=== PATIENT | female | born 1950 | race Caucasian/White ===

== ENCOUNTER 2017-10-19 01:55 | Outpatient (RCR) | payer MEDICARE, OTHER, SELFPAY ==
[2017-10-19] MEDS: diphenhydrAMINE 25 MG CAP PO (10:52)
[2017-10-19] MEDS: Acetaminophen 325 MG TAB 650 MG PO (11:03)
[2017-10-19 11:24] VITALS: BP 108/63; PULSE 71; TEMP 36.5
[2017-10-19 11:55] VITALS: BP 112/63; PULSE 67; RESP 18; TEMP 36
[2017-10-19 12:10] VITALS: BP 110/65; PULSE 65; RESP 18; TEMP 36
== END 2017-11-11 ==
LOC: INF 01:55
PROVIDERS: PCP Family Medicine; Visit Provider Family Medicine
DX: L40.50 Arthropathic psoriasis, unspecified (principal)
CPT/HCPCS: 96365; 96366; J1745

== ENCOUNTER 2017-11-23 09:32 | Outpatient (CLI) | payer MEDICARE, OTHER, SELFPAY ==
[2017-11-23 10:15] LABS: Abs Immature Grans 0.01 k/cumm (0.0-0.09); Absolute Basophil Count 0.02 k/cumm (0.0-0.2); Absolute Eosinophil Count 0.06 k/cumm (0.0-0.7); Absolute Lymphocyte Count 1.75 k/cumm (1.2-3.4); Absolute Monocyte Count 0.39 k/cumm (0.11-0.7); Absolute Neutrophil Count 1.98 k/cumm (1.2-6.7); Basophils % 0.5; Eosinophils % 1.4; HCT 39.6 % (36.0-46.0); HGB 12.9 g/dL (12.0-15.5); Immature Grans % 0.2; Lymphocytes % 41.6; Mean Corp. HGB Concentration 32.6 g/dL (32.0-36.0); Mean Corpuscular Hemoglobin 32.9 pg (27.0-33.0); Monocytes % 9.3; Platelet Count 238 x1000/uL (130-400); RBC 3.92 m/cumm (4.00-5.20); RBC Distribution Width 13.9 % (11.7-14.6); White Blood Cell Count 4.21 k/cumm (4.4-10.8)
[2017-11-23 10:48] LABS: ALT 40 U/L (12-78); AST 31 U/L (15-37); Albumin 3.5 g/dL (3.4-5.0); Alkaline Phosphatase 103 U/L (46-116); BUN 24 mg/dL (7-18); Bilirubin, Total 0.4 mg/dL (0.2-1.0); CREATININE 0.88 mg/dL (0.55-1.02)
[2017-11-23 11:00] LABS: Bilirubin, Direct 0.13 mg/dL (0.00-0.20)
== END 2017-11-23 09:52 ==
PROVIDERS: PCP Family Medicine; Visit Provider Nurse Practitioner Family
DX: L40.54 Psoriatic juvenile arthropathy (principal); Z79.899 Other long term (current) drug therapy
CPT/HCPCS: 36415; 80076; 84520; 82565; 85025

== ENCOUNTER 2017-12-14 01:34 | Outpatient (RCR) | payer MEDICARE, OTHER, SELFPAY ==
[2017-12-14] MEDS: Normal Saline Flush 10 ML SYR IVP (10:58)
[2017-12-14] MEDS: diphenhydrAMINE 25 MG CAP PO (11:05)
[2017-12-14] MEDS: Acetaminophen 325 MG TAB 650 MG PO (11:06)
[2017-12-14 11:30] VITALS: BP 117/66; PULSE 61; RESP 18; TEMP 36.3; O2SAT 98
[2017-12-14 11:34] VITALS: BP 123/67; PULSE 61; RESP 18; TEMP 37; O2SAT 97
[2017-12-14 11:47] VITALS: BP 119/74; PULSE 61; RESP 18; TEMP 37.1; O2SAT 96
[2017-12-14 12:00] VITALS: BP 117/58; PULSE 67; RESP 18; TEMP 37.2; O2SAT 99
[2017-12-14 12:30] VITALS: BP 123/56; PULSE 65; RESP 18; TEMP 36.2; O2SAT 99
[2017-12-14 13:04] VITALS: BP 113/51; PULSE 67; RESP 18; TEMP 36.8; O2SAT 99
== END 2018-01-11 23:59 | disposition home or self-care (01) ==
LOC: INF 01:34
PROVIDERS: PCP Family Medicine; Visit Provider Family Medicine
DX: L40.50 Arthropathic psoriasis, unspecified (principal)
CPT/HCPCS: 96365; 96366; J1745

== ENCOUNTER 2017-12-29 01:27 | Outpatient (CLI) | payer MEDICARE, OTHER, SELFPAY ==
--- NOTE | 2017-12-29 11:50 | DI.MAMMO_ITS ---
SYMPTOM/DIAGNOSIS: SCREENING, Z12.31 MAMMOGRAMS: Mammograms were interpreted according to the usual protocol including computer analysis with CAD system, tomosynthesis and C view imaging. The breast tissue is heterogeneously radiodense which lowers the sensitivity of the study. There is no dominant mass. There are no suspicious calcifications and there has been no significant interval change when compared with prior images. SUMMARY: No evidence of malignancy. Category 1. Yearly screening mammography is recommended. Breast density, category C. SA ASSESSMENT OF FINDINGS: Negative. Category 1. Patient will receive a letter notifying them of these results. Bi-RADS category C. The breasts are heterogeneously dense, which may obscure small masses.
== END 2017-12-29 01:47 ==
PROVIDERS: PCP Family Medicine; Visit Provider Nurse Practitioner Family
DX: Z12.31 Encounter for screening mammogram for malignant neoplasm of breast (principal)
CPT/HCPCS: 77063; 77067

== ENCOUNTER 2018-02-08 01:13 | Outpatient (RCR) | payer MEDICARE, OTHER, SELFPAY ==
[2018-02-08 11:17] VITALS: BP 106/60; PULSE 76; RESP 18; TEMP 36.7; O2SAT 94
[2018-02-08] MEDS: diphenhydrAMINE 25 MG CAP PO (11:20)
[2018-02-08] MEDS: Acetaminophen 325 MG TAB 650 MG PO (11:20)
[2018-02-08] MEDS: Normal Saline Flush 10 ML SYR IVP (11:27)
[2018-02-08 11:55] VITALS: BP 116/54; PULSE 63; RESP 18; TEMP 36.6; O2SAT 96
[2018-02-08 12:09] VITALS: BP 115/56; PULSE 64; RESP 18; TEMP 36.7; O2SAT 96
[2018-02-08 12:25] VITALS: BP 123/51; PULSE 66; RESP 18; TEMP 36.8; O2SAT 97
[2018-02-08 12:56] VITALS: BP 106/50; PULSE 65; RESP 18; TEMP 36.7; O2SAT 95
[2018-02-08 13:26] VITALS: BP 114/57; PULSE 68; RESP 18; TEMP 36.5; O2SAT 96
== END 2018-02-10 23:59 | disposition home or self-care (01) ==
LOC: INF 01:13
PROVIDERS: PCP Family Medicine; Visit Provider Family Medicine
DX: L40.50 Arthropathic psoriasis, unspecified (principal)
CPT/HCPCS: 96365; 96366; J1745

== ENCOUNTER 2018-02-16 08:41 | Outpatient (CLI) | payer MEDICARE, OTHER, SELFPAY ==
[2018-02-16 09:11] LABS: HCT 39.2 % (36.0-46.0); HGB 13.1 g/dL (12.0-15.5); Mean Corp. HGB Concentration 33.4 g/dL (32.0-36.0); Mean Corpuscular Hemoglobin 33.3 pg (27.0-33.0); Mean Corpuscular Volume 99.7 fL (80-95); Mean Platelet Volume 9.5 fL (8.0-11.0); Platelet Count 194 x1000/uL (130-400); RBC 3.93 m/cumm (4.00-5.20); RBC Distribution Width 13.7 % (11.7-14.6); White Blood Cell Count 3.42 k/cumm (4.4-10.8)
[2018-02-16 09:51] LABS: ALT 38 U/L (12-78); AST 30 U/L (15-37); Albumin 3.4 g/dL (3.4-5.0); Alkaline Phosphatase 93 U/L (46-116); BUN 27 mg/dL (7-18); Bilirubin, Direct 0.14 mg/dL (0.00-0.20); Bilirubin, Total 0.4 mg/dL (0.2-1.0); CREATININE 0.81 mg/dL (0.55-1.02); Total Protein 6.8 g/dL (6.4-8.2)
== END 2018-02-16 09:01 ==
PROVIDERS: PCP Family Medicine; Visit Provider Nurse Practitioner Family
DX: L40.54 Psoriatic juvenile arthropathy (principal); Z79.899 Other long term (current) drug therapy
CPT/HCPCS: 36415; 80076; 84520; 85027; 82565

== ENCOUNTER 2018-04-05 02:01 | Outpatient (RCR) | payer MEDICARE, OTHER, SELFPAY ==
[2018-04-05] MEDS: Acetaminophen 325 MG TAB 650 MG PO (10:59)
[2018-04-05] MEDS: Normal Saline Flush 10 ML SYR IVP (10:59)
[2018-04-05] MEDS: diphenhydrAMINE 25 MG CAP PO (10:59)
[2018-04-05 11:05] VITALS: BP 113/54; PULSE 70; RESP 18; TEMP 36; O2SAT 96
[2018-04-05 11:38] VITALS: BP 104/49; PULSE 69; RESP 18; TEMP 36; O2SAT 98
[2018-04-05 11:54] VITALS: BP 115/57; PULSE 67; RESP 18; TEMP 36; O2SAT 98
[2018-04-05 12:15] VITALS: BP 110/60; PULSE 65; RESP 18; TEMP 36; O2SAT 98
[2018-04-05 12:40] VITALS: BP 115/65; PULSE 64; RESP 18; TEMP 36; O2SAT 98
== END 2018-04-13 23:59 | disposition home or self-care (01) ==
LOC: INF 02:01
PROVIDERS: PCP Family Medicine; Visit Provider Internal Medicine
DX: L40.50 Arthropathic psoriasis, unspecified (principal)
CPT/HCPCS: 96365; 96366; J1745

== ENCOUNTER 2018-05-31 01:42 | Outpatient (RCR) | payer MEDICARE, OTHER, SELFPAY ==
[2018-05-31 10:55] VITALS: BP 136/69; PULSE 63; RESP 18; TEMP 36.5; O2SAT 100
[2018-05-31] MEDS: diphenhydrAMINE 25 MG CAP PO (10:57)
[2018-05-31] MEDS: Acetaminophen 325 MG TAB 650 MG PO (10:57)
[2018-05-31] MEDS: Normal Saline Flush 10 ML SYR IVP (10:57)
[2018-05-31 11:46] VITALS: BP 132/70; PULSE 61; RESP 18; TEMP 36.3; O2SAT 98
[2018-05-31 12:00] VITALS: BP 115/64; PULSE 66; RESP 18; TEMP 36.4; O2SAT 98
[2018-05-31 12:15] VITALS: BP 116/65; PULSE 65; RESP 18; TEMP 36.3; O2SAT 98
== END 2018-06-11 23:59 | disposition home or self-care (01) ==
LOC: INF 01:42
PROVIDERS: PCP Family Medicine; Visit Provider Internal Medicine
DX: L40.50 Arthropathic psoriasis, unspecified (principal)
CPT/HCPCS: 96365; 96366; J1745

== ENCOUNTER 2018-07-26 01:39 | Outpatient (RCR) | payer MEDICARE, OTHER, SELFPAY ==
[2018-07-26 10:57] VITALS: BP 103/68; PULSE 77; RESP 18; TEMP 36; O2SAT 100
[2018-07-26] MEDS: Acetaminophen 325 MG TAB 650 MG PO (10:58)
[2018-07-26] MEDS: diphenhydrAMINE 25 MG CAP PO (10:59)
[2018-07-26] MEDS: Normal Saline Flush 10 ML SYR IVP (11:00)
[2018-07-26 11:44] VITALS: BP 106/70; PULSE 62; RESP 18; TEMP 36.8; O2SAT 97
[2018-07-26 12:07] VITALS: BP 114/74; PULSE 64; RESP 18; TEMP 36.3; O2SAT 98
[2018-07-26 12:36] VITALS: BP 117/74; PULSE 69; RESP 18; TEMP 36.1; O2SAT 99
== END 2018-08-11 23:59 | disposition home or self-care (01) ==
LOC: INF 01:39
PROVIDERS: PCP Family Medicine; Visit Provider Internal Medicine
DX: L40.50 Arthropathic psoriasis, unspecified (principal)
CPT/HCPCS: 96365; 96366; J1745

== ENCOUNTER 2018-08-04 09:30 | Outpatient (CLI) | payer MEDICARE, OTHER, SELFPAY ==
[2018-08-04 09:53] LABS: HCT 38.9 % (36.0-46.0); HGB 12.9 g/dL (12.0-15.5); Mean Corp. HGB Concentration 33.2 g/dL (32.0-36.0); Mean Corpuscular Hemoglobin 33.5 pg (27.0-33.0); Mean Platelet Volume 9.6 fL (8.0-11.0); Platelet Count 188 x1000/uL (130-400); RBC 3.85 m/cumm (4.00-5.20); White Blood Cell Count 5.12 k/cumm (4.4-10.8)
[2018-08-04 11:30] LABS: ALT 32 U/L (12-78); AST 26 U/L (15-37); Albumin 3.4 g/dL (3.4-5.0); Alkaline Phosphatase 103 U/L (46-116); BUN 29 mg/dL (7-18); Bilirubin, Direct 0.12 mg/dL (0.00-0.20); Bilirubin, Total 0.3 mg/dL (0.2-1.0); CREATININE 0.85 mg/dL (0.55-1.02); Total Protein 6.8 g/dL (6.4-8.2)
== END 2018-08-04 09:50 ==
PROVIDERS: PCP Family Medicine; Visit Provider Nurse Practitioner Family
DX: L40.54 Psoriatic juvenile arthropathy (principal); Z79.899 Other long term (current) drug therapy
CPT/HCPCS: 36415; 80076; 84520; 85027; 82565

== ENCOUNTER 2018-09-22 04:08 | Outpatient (RCR) | payer MEDICARE, OTHER, SELFPAY ==
[2018-09-22 10:57] VITALS: BP 112/70; PULSE 64; RESP 18; TEMP 36.7; O2SAT 98
[2018-09-22] MEDS: Acetaminophen 325 MG TAB 650 MG PO (11:16)
[2018-09-22] MEDS: diphenhydrAMINE 25 MG CAP PO (11:16)
[2018-09-22] MEDS: Normal Saline Flush 10 ML SYR IVP (11:17)
[2018-09-22 11:48] VITALS: BP 107/66; PULSE 64; RESP 18; TEMP 36.7; O2SAT 98
[2018-09-22 12:04] VITALS: BP 114/71; PULSE 68; RESP 18; TEMP 36.4; O2SAT 98
[2018-09-22 12:30] VITALS: BP 97/57; PULSE 68; RESP 18; TEMP 36.4; O2SAT 98
[2018-09-22 12:51] VITALS: BP 100/56; PULSE 65; RESP 18; TEMP 36.4; O2SAT 99
[2018-09-22 13:16] VITALS: BP 99/61; PULSE 68; RESP 18; TEMP 36.6; O2SAT 98
== END 2018-10-11 23:59 | disposition home or self-care (01) ==
LOC: INF 04:08
PROVIDERS: PCP Family Medicine; Visit Provider Internal Medicine
DX: L40.50 Arthropathic psoriasis, unspecified (principal)
CPT/HCPCS: 96365; 96366; J1745

== ENCOUNTER 2018-10-27 02:06 | Outpatient (CLI) | payer MEDICARE, OTHER, SELFPAY ==
[2018-10-27 10:32] LABS: HGB 13.2 g/dL (12.0-15.5); Mean Corp. HGB Concentration 32.2 g/dL (32.0-36.0); Mean Corpuscular Volume 99.5 fL (80-95); Mean Platelet Volume 9.9 fL (8.0-11.0); Platelet Count 236 x1000/uL (130-400); RBC 4.12 m/cumm (4.00-5.20); RBC Distribution Width 13.2 % (11.7-14.6); White Blood Cell Count 5.54 k/cumm (4.4-10.8)
[2018-10-27 11:16] LABS: ALT 29 U/L (12-78); AST 24 U/L (15-37); Albumin 3.5 g/dL (3.4-5.0); Alkaline Phosphatase 107 U/L (46-116); BUN 30 mg/dL (7-18); Bilirubin, Direct 0.12 mg/dL (0.00-0.20); Bilirubin, Total 0.4 mg/dL (0.2-1.0); CREATININE 0.72 mg/dL (0.55-1.02); Total Protein 7.1 g/dL (6.4-8.2)
== END 2018-10-27 02:26 ==
PROVIDERS: Nurse Practitioner Family; PCP Family Medicine; Visit Provider Internal Medicine Rheumatology
DX: L40.54 Psoriatic juvenile arthropathy (principal); Z79.899 Other long term (current) drug therapy
CPT/HCPCS: 36415; 80076; 84520; 85027; 82565

== ENCOUNTER 2018-11-15 01:08 | Outpatient (RCR) | payer MEDICARE, OTHER, SELFPAY ==
[2018-11-15] MEDS: Acetaminophen 325 MG TAB 650 MG PO (11:04)
[2018-11-15] MEDS: diphenhydrAMINE 25 MG CAP PO (11:05)
[2018-11-15 11:09] VITALS: BP 115/76; PULSE 71; RESP 18; TEMP 36.6; O2SAT 99
[2018-11-15] MEDS: Normal Saline Flush 10 ML SYR IVP (12:00)
[2018-11-15 12:11] VITALS: BP 110/71; PULSE 64; RESP 18; TEMP 36.4; O2SAT 98
[2018-11-15 12:28] VITALS: BP 114/70; PULSE 67; RESP 18; TEMP 36.5; O2SAT 100
[2018-11-15 13:00] VITALS: BP 115/72; PULSE 65; RESP 18; TEMP 36.5; O2SAT 98
[2018-11-15 14:18] VITALS: BP 110/66; PULSE 70; RESP 18; TEMP 36.5; O2SAT 99
== END 2018-12-11 23:59 | disposition home or self-care (01) ==
LOC: INF 01:08
PROVIDERS: PCP Family Medicine; Visit Provider Internal Medicine
DX: L40.50 Arthropathic psoriasis, unspecified (principal)
CPT/HCPCS: 96365; 96366; J1745

== ENCOUNTER 2019-01-29 01:54 | Outpatient (RCR) | payer MEDICARE, OTHER, SELFPAY ==
[2019-01-29] VITALS (7 sets, daily range): BP systolic 103–117; BP diastolic 62–75; PULSE 59–68; RESP 17–19; TEMP 36.9–37.1; O2SAT 96–98
[2019-01-29] MEDS: Normal Saline Flush 10 ML SYR IVP (11:29)
== END 2019-02-10 23:59 | disposition home or self-care (01) ==
LOC: INF 01:54
PROVIDERS: PCP Family Medicine; Visit Provider Internal Medicine
DX: L40.50 Arthropathic psoriasis, unspecified (principal)
CPT/HCPCS: 96365; 96366; J1745

== ENCOUNTER 2019-02-02 09:35 | Outpatient (CLI) | payer MEDICARE, OTHER, SELFPAY ==
[2019-02-02 10:44] LABS: HCT 39.7 % (36.0-46.0); Mean Corp. HGB Concentration 32.7 g/dL (32.0-36.0); Mean Corpuscular Hemoglobin 32.3 pg (27.0-33.0); Mean Corpuscular Volume 98.5 fL (80-95); Mean Platelet Volume 9.2 fL (8.0-11.0); Platelet Count 251 x1000/uL (130-400); RBC 4.03 m/cumm (4.00-5.20); RBC Distribution Width 13.1 % (11.7-14.6); White Blood Cell Count 7.28 k/cumm (4.4-10.8)
[2019-02-02 11:14] LABS: ALT 30 U/L (14-59); AST 27 U/L (15-37); Albumin 3.4 g/dL (3.4-5.0); Alkaline Phosphatase 105 U/L (46-116); BUN 18 mg/dL (7-18); Bilirubin, Direct 0.09 mg/dL (0.00-0.20); Bilirubin, Total 0.4 mg/dL (0.2-1.0); CREATININE 0.78 mg/dL (0.55-1.02); Total Protein 6.9 g/dL (6.4-8.2)
== END 2019-02-02 09:55 ==
PROVIDERS: PCP Family Medicine; Visit Provider Nurse Practitioner Family
DX: L40.54 Psoriatic juvenile arthropathy (principal); Z79.899 Other long term (current) drug therapy
CPT/HCPCS: 36415; 80076; 84520; 85027; 82565

== ENCOUNTER 2019-04-11 02:18 | Outpatient (RCR) | payer MEDICARE, OTHER, SELFPAY ==
[2019-04-11 10:56] VITALS: BP 118/75; PULSE 76; RESP 18; TEMP 36.7; O2SAT 97
[2019-04-11] MEDS: Normal Saline Flush 10 ML SYR IVP (11:26)
[2019-04-11 11:30] VITALS: BP 121/67; PULSE 77; RESP 19; TEMP 36.8; O2SAT 95
[2019-04-11 11:45] VITALS: BP 119/73; PULSE 80; RESP 18; TEMP 36.8; O2SAT 96
[2019-04-11 12:00] VITALS: BP 122/76; PULSE 82; RESP 19; TEMP 36.6; O2SAT 97
[2019-04-11 12:15] VITALS: BP 111/71; PULSE 78; RESP 18; TEMP 36.6; O2SAT 96
[2019-04-11 12:53] VITALS: BP 101/59; PULSE 81; RESP 18; TEMP 36.8
== END 2019-04-13 23:59 | disposition home or self-care (01) ==
LOC: INF 02:18
PROVIDERS: PCP Family Medicine; Visit Provider Internal Medicine
DX: L40.50 Arthropathic psoriasis, unspecified (principal)
CPT/HCPCS: 96365; 96366; 96413; 96415; J1745

== ENCOUNTER 2019-04-27 01:10 | Outpatient (CLI) | payer MEDICARE, OTHER, SELFPAY ==
[2019-04-27 10:42] LABS: HCT 40.9 % (36.0-46.0); HGB 13.3 g/dL (12.0-15.5); Mean Corp. HGB Concentration 32.5 g/dL (32.0-36.0); Mean Corpuscular Hemoglobin 32.2 pg (27.0-33.0); Mean Platelet Volume 9.7 fL (8.0-11.0); Platelet Count 230 x1000/uL (130-400); RBC 4.13 m/cumm (4.00-5.20); RBC Distribution Width 12.9 % (11.7-14.6); White Blood Cell Count 5.08 k/cumm (4.4-10.8)
[2019-04-27 11:05] LABS: ALT 26 U/L (14-59); AST 25 U/L (15-37); Albumin 3.4 g/dL (3.4-5.0); Alkaline Phosphatase 99 U/L (46-116); BUN 25 mg/dL (7-18); Bilirubin, Direct 0.11 mg/dL (0.00-0.20); Bilirubin, Total 0.4 mg/dL (0.2-1.0); CREATININE 0.88 mg/dL (0.55-1.02); Total Protein 6.7 g/dL (6.4-8.2)
== END 2019-04-27 01:30 ==
PROVIDERS: PCP Family Medicine; Visit Provider Nurse Practitioner Family
DX: L40.50 Arthropathic psoriasis, unspecified (principal); Z79.899 Other long term (current) drug therapy
CPT/HCPCS: 36415; 80076; 84520; 85027; 82565

== ENCOUNTER 2019-06-06 01:52 | Outpatient (RCR) | payer MEDICARE, OTHER, SELFPAY ==
[2019-06-06] MEDS: diphenhydrAMINE 25 MG CAP PO (10:46)
[2019-06-06] MEDS: Acetaminophen 325 MG TAB 650 MG PO (10:46)
[2019-06-06] MEDS: Normal Saline Flush 10 ML SYR IVP (10:47)
[2019-06-06 11:06] VITALS: BP 114/73; PULSE 65; RESP 18; TEMP 36.8; O2SAT 97
[2019-06-06 11:35] VITALS: BP 114/73; PULSE 63; RESP 18; TEMP 36.7; O2SAT 97
[2019-06-06 11:50] VITALS: BP 111/65; PULSE 62; RESP 18; TEMP 36.5; O2SAT 97
[2019-06-06 12:05] VITALS: BP 116/61; PULSE 60; RESP 18; TEMP 36.7; O2SAT 97
[2019-06-06 12:20] VITALS: BP 106/65; PULSE 65; RESP 19; TEMP 36.4; O2SAT 97
[2019-06-06 13:00] VITALS: BP 104/59; PULSE 69; RESP 19; TEMP 36.5; O2SAT 98
== END 2019-06-12 23:59 | disposition home or self-care (01) ==
LOC: INF 01:52
PROVIDERS: PCP Family Medicine; Visit Provider Internal Medicine
DX: L40.50 Arthropathic psoriasis, unspecified (principal)
CPT/HCPCS: 96365; 96366; 96413; 96415; J1745

== ENCOUNTER 2019-07-25 02:25 | Outpatient (CLI) | payer MEDICARE, OTHER, SELFPAY ==
[2019-07-25 10:10] LABS: HGB 13.6 g/dL (12.0-15.5); Mean Corp. HGB Concentration 33.2 g/dL (32.0-36.0); Mean Corpuscular Hemoglobin 32.7 pg (27.0-33.0); Mean Corpuscular Volume 98.6 fL (80-95); Platelet Count 231 x1000/uL (130-400); RBC 4.16 m/cumm (4.00-5.20); RBC Distribution Width 13.1 % (11.7-14.6); White Blood Cell Count 5.53 k/cumm (4.4-10.8)
[2019-07-25 10:44] LABS: ALT 31 U/L (14-59); AST 26 U/L (15-37); Albumin 3.7 g/dL (3.4-5.0); Alkaline Phosphatase 108 U/L (46-116); BUN 25 mg/dL (7-18); Bilirubin, Direct 0.13 mg/dL (0.00-0.20); Bilirubin, Total 0.4 mg/dL (0.2-1.0); CREATININE 0.91 mg/dL (0.55-1.02); Total Protein 7.3 g/dL (6.4-8.2)
== END 2019-07-25 02:45 ==
PROVIDERS: PCP Family Medicine; Visit Provider Nurse Practitioner Family
DX: L40.50 Arthropathic psoriasis, unspecified (principal); Z79.899 Other long term (current) drug therapy
CPT/HCPCS: 36415; 80076; 84520; 85027; 82565

== ENCOUNTER 2019-08-01 00:50 | Outpatient (RCR) | payer MEDICARE, OTHER, SELFPAY ==
[2019-08-01] VITALS (8 sets, daily range): BP systolic 100–124; BP diastolic 62–76; PULSE 60–79; RESP 18–19; TEMP 36.3–36.4; O2SAT 97–99
[2019-08-01] MEDS: Normal Saline Flush 10 ML SYR IVP (11:24)
== END 2019-08-12 23:59 | disposition home or self-care (01) ==
LOC: INF 00:50
PROVIDERS: PCP Family Medicine; Visit Provider Internal Medicine
DX: L40.50 Arthropathic psoriasis, unspecified (principal)
CPT/HCPCS: 96365; 96366; 96413; 96415; J1745

== ENCOUNTER 2019-09-27 01:44 | Outpatient (RCR) | payer MEDICARE, OTHER, SELFPAY ==
[2019-09-27] VITALS (7 sets, daily range): BP systolic 103–113; BP diastolic 52–68; PULSE 64–68; RESP 18; TEMP 36.2–36.8; O2SAT 95–96
[2019-09-27] MEDS: Normal Saline Flush 10 ML SYR IVP (11:44)
== END 2019-10-12 23:59 | disposition home or self-care (01) ==
LOC: INF 01:44
PROVIDERS: PCP Family Medicine; Visit Provider Internal Medicine
DX: L40.59 Other psoriatic arthropathy (principal)
CPT/HCPCS: 96365; 96366; 96413; 96415; J1745

== ENCOUNTER 2019-10-31 03:01 | Outpatient (CLI) | payer MEDICARE, OTHER, SELFPAY ==
[2019-10-31 09:30] LABS: HCT 38.8 % (36.0-46.0); HGB 12.8 g/dL (11.2-15.7); MCH 32.2 pg (27.0-33.0); MCV 97.7 fL (80-95); MPV 9.6 fL (8.0-11.0); Platelet Count 210 10^3/uL (130-400); RBC 3.97 10^6/uL (3.93-5.22); RDW 12.7 % (11.7-14.6); RDW-SD 45.7 fL; WBC 6.16 10^3/uL (4.4-10.8)
[2019-10-31 10:34] LABS: ALT 27 U/L (14-59); AST 25 U/L (15-37); Albumin 3.3 g/dL (3.4-5.0); Alkaline Phosphatase 97 U/L (46-116); BUN 26 mg/dL (7-18); Bilirubin, Direct 0.09 mg/dL (0.00-0.20); Bilirubin, Total 0.3 mg/dL (0.2-1.0); CREATININE 0.79 mg/dL (0.55-1.02); Total Protein 6.8 g/dL (6.4-8.2)
== END 2019-10-31 03:21 ==
PROVIDERS: PCP Family Medicine; Visit Provider Nurse Practitioner Family
DX: L40.50 Arthropathic psoriasis, unspecified (principal); Z79.899 Other long term (current) drug therapy
CPT/HCPCS: 36415; 80076; 84520; 85027; 82565

== ENCOUNTER 2019-11-22 02:47 | Outpatient (RCR) | payer MEDICARE, OTHER, SELFPAY ==
[2019-11-22] VITALS (7 sets, daily range): BP systolic 99–142; BP diastolic 59–82; PULSE 68–73; RESP 18–19; TEMP 36.6–36.8; O2SAT 97
[2019-11-22] MEDS: diphenhydrAMINE 25 MG CAP PO (11:44)
[2019-11-22] MEDS: Acetaminophen 325 MG TAB 650 MG PO (11:44)
[2019-11-22] MEDS: Normal Saline Flush 10 ML SYR IVP (11:45)
== END 2019-12-12 23:59 | disposition home or self-care (01) ==
LOC: INF 02:47
PROVIDERS: PCP Family Medicine; Visit Provider Internal Medicine
DX: L40.59 Other psoriatic arthropathy (principal)
CPT/HCPCS: 96365; 96366; 96413; 96415; J1745

== ENCOUNTER 2020-02-01 03:05 | Outpatient (CLI) | payer MEDICARE, OTHER, SELFPAY ==
[2020-02-04 22:44] LABS: Patient Race White; SARS-CoV-2 RNA Undetected (Undetected); SARS-CoV-2 Specimen Source Nasal
== END 2020-02-01 03:25 ==
PROVIDERS: PCP Family Medicine; Visit Provider Family Medicine
DX: Z11.59 Encounter for screening for other viral diseases (principal)
CPT/HCPCS: U0003

== ENCOUNTER 2020-02-13 11:00 | Outpatient (RCR) | payer MEDICARE, OTHER, SELFPAY ==
[2020-02-13] VITALS (7 sets, daily range): BP systolic 109–132; BP diastolic 64–78; PULSE 65–83; RESP 16–18; TEMP 36.9–37; O2SAT 97–99
[2020-02-13] MEDS: Normal Saline Flush 10 ML SYR IVP (11:15)
[2020-02-13 11:25] LABS: HCT 40.6 % (36.0-46.0); HGB 13.4 g/dL (11.2-15.7); MCH 32.1 pg (27.0-33.0); MCV 97.4 fL (80-95); MPV 9.6 fL (8.0-11.0); Platelet Count 248 10^3/uL (130-400); RBC 4.17 10^6/uL (3.93-5.22); RDW 12.4 % (11.7-14.6); RDW-SD 44.7 fL; WBC 6.54 10^3/uL (4.4-10.8)
[2020-02-13 11:38] LABS: ALT 21 U/L (14-59); AST 22 U/L (15-37); Albumin 3.5 g/dL (3.4-5.0); Alkaline Phosphatase 102 U/L (46-116); Anion Gap 7.6 mmol/L (3-11); BUN 31 mg/dL (7-18); Bilirubin, Total 0.4 mg/dL (0.2-1.0); CO2 26.4 mmol/L (21.0-32.0); CREATININE 0.92 mg/dL (0.55-1.02); Calcium 8.7 mg/dL (8.5-10.1); Chloride 106 mmol/L (98-107); Glucose 72 mg/dL (74-106); Potassium 4.3 mmol/L (3.5-5.1); Sodium 140 mmol/L (136-145); Total Protein 7.7 g/dL (6.4-8.2)
== END 2020-03-13 23:59 | disposition home or self-care (01) ==
LOC: INF 11:00
PROVIDERS: Nurse Practitioner Family; PCP Family Medicine; Visit Provider Internal Medicine
DX: L40.50 Arthropathic psoriasis, unspecified (principal); Z79.899 Other long term (current) drug therapy
CPT/HCPCS: 36415; 80053; 85027; 96365; 96366; 96413; 96415; J1745

== ENCOUNTER 2020-04-23 02:39 | Outpatient (RCR) | payer MEDICARE, OTHER, SELFPAY ==
[2020-03-14 00:11] VITALS: BP 109/64; PULSE 77; RESP 16; TEMP 36.9
[2020-04-23] VITALS (7 sets, daily range): BP systolic 97–121; BP diastolic 59–71; PULSE 65–75; RESP 18–19; TEMP 37–37.6; O2SAT 95–97
[2020-04-23] MEDS: Normal Saline Flush 10 ML SYR IVP (11:05)
== END 2020-05-11 23:59 | disposition home or self-care (01) ==
LOC: INF 02:39
PROVIDERS: PCP Family Medicine; Visit Provider Internal Medicine
DX: L40.50 Arthropathic psoriasis, unspecified (principal); Z79.899 Other long term (current) drug therapy
CPT/HCPCS: 96365; 96366; 96413; 96415; J1745

== ENCOUNTER 2020-05-14 04:25 | Outpatient (CLI) | payer MEDICARE, OTHER, SELFPAY ==
[2020-05-14 13:13] LABS: HCT 41.9 % (36.0-46.0); HGB 13.7 g/dL (11.2-15.7); MCHC 32.7 % (32.0-36.0); MCV 97.9 fL (80-95); MPV 9.8 fL (8.0-11.0); Platelet Count 228 10^3/uL (130-400); RBC 4.28 10^6/uL (3.93-5.22); RDW 12.4 % (11.7-14.6); RDW-SD 44.3 fL; WBC 6.28 10^3/uL (4.4-10.8)
[2020-05-14 13:56] LABS: ALT 39 U/L (14-59); AST 31 U/L (15-37); Albumin 3.6 g/dL (3.4-5.0); Alkaline Phosphatase 111 U/L (46-116); Anion Gap 7.9 mmol/L (3-11); BUN 27 mg/dL (7-18); Bilirubin, Direct 0.06 mg/dL (0.00-0.20); Bilirubin, Total 0.3 mg/dL (0.2-1.0); CO2 30.1 mmol/L (21.0-32.0); CREATININE 0.8 mg/dL (0.55-1.02); Calcium 8.8 mg/dL (8.5-10.1); Chloride 103 mmol/L (98-107); Glucose 88 mg/dL (74-106); Potassium 4.2 mmol/L (3.5-5.1); Sodium 141 mmol/L (136-145); Total Protein 7.4 g/dL (6.4-8.2)
== END 2020-05-14 04:26 | disposition home or self-care (01) ==
LOC: LBO 04:25
PROVIDERS: PCP Family Medicine; Visit Provider Nurse Practitioner Family
DX: L40.50 Arthropathic psoriasis, unspecified (principal); Z79.899 Other long term (current) drug therapy
CPT/HCPCS: 36415; 80053; 80076; 85027

== ENCOUNTER 2020-06-10 02:37 | Outpatient (CLI) | payer MEDICARE, OTHER, SELFPAY ==
--- NOTE | 2020-06-10 07:00 | DI.MAMMO_ITS ---
EXAM: MAMMO SCREENING CLINICAL HISTORY: screening,Z12.39 TECHNIQUE: Mammograms were interpreted according to the usual protocol including computer analysis w [employer] AS CAD system, tomosynthesis and C-view imaging. COMPARISON: 2011 through 2017 FINDINGS: The breasts are composed of heterogeneously dense fibroglandular densities, Breast Density category C . No suspicious masses or suspicious microcalcifications are seen. No skin thickening or abnormal axillary lymph nodes are seen. There has been no significant change from prior exams. IMPRESSION: BI-RADS Category 1, Negative mammogram. Yearly screening mammography is recommended. Breast Density Category C, heterogeneously Dense. The mammogram demonstrates the patient's breast tissue is dense. Dense breast tissue is very common a nd is not abnormal but dense breast tissue can make it harder to find cancer on a mammogram. Also, de nse breast tissue may increase breast cancer risk. This information about the result of the mammogram report was provided to the patient to raise their awareness. Use this report when you speak with the patient about their risks for breast cancer, which includes their family history. At that time, you may recommend additional screening tests (Ultrasound or MRI) as they might be useful based on their r isk. A negative radiographic report should not delay biopsy if a dominant or clinically suspicious mass is present. Up to ten percent of cancers are not identified on mammography. A negative report may reinforce clinical impression. Adenosis and dense breasts may obscure an underlying neoplasm. False positive reports average 6 to 10%.
== END 2020-06-10 02:57 ==
PROVIDERS: PCP Family Medicine; Visit Provider Family Medicine
DX: Z12.31 Encounter for screening mammogram for malignant neoplasm of breast (principal)
CPT/HCPCS: 77063; 77067

== ENCOUNTER 2020-06-18 02:17 | Outpatient (RCR) | payer MEDICARE, OTHER, SELFPAY ==
[2020-05-12 00:12] VITALS: BP 97/59; PULSE 75; RESP 18; TEMP 37
[2020-06-18 11:00] VITALS: BP 112/64; PULSE 64; RESP 16; TEMP 36.3; O2SAT 96
[2020-06-18] MEDS: Normal Saline Flush 10 ML SYR IVP (11:23)
[2020-06-18 11:40] VITALS: BP 111/71; PULSE 61; RESP 16; TEMP 36.4; O2SAT 97
[2020-06-18 11:55] VITALS: BP 106/67; PULSE 60; RESP 16; TEMP 36.7; O2SAT 98
[2020-06-18 12:10] VITALS: BP 120/76; PULSE 68; RESP 16; TEMP 36.1; O2SAT 97
[2020-06-18 12:29] VITALS: BP 107/66; PULSE 69; RESP 16; TEMP 36.1; O2SAT 98
[2020-06-18 13:01] VITALS: BP 109/68; PULSE 68; RESP 16; TEMP 36.4; O2SAT 98
== END 2020-07-11 23:59 | disposition home or self-care (01) ==
LOC: INF 02:17
PROVIDERS: PCP Family Medicine; Visit Provider Internal Medicine
DX: L40.59 Other psoriatic arthropathy (principal); Z79.899 Other long term (current) drug therapy
CPT/HCPCS: 96365; 96366; 96413; 96415; J1745

== ENCOUNTER 2020-08-06 04:22 | Outpatient (CLI) | payer MEDICARE, OTHER, SELFPAY ==
[2020-08-06 14:51] LABS: HCT 37.1 % (36.0-46.0); HGB 12.3 g/dL (11.2-15.7); MCH 31.5 pg (27.0-33.0); MCHC 33.2 % (32.0-36.0); MCV 95.1 fL (80-95); MPV 10.2 fL (8.0-11.0); Platelet Count 217 10^3/uL (130-400); RDW 12.6 % (11.7-14.6); RDW-SD 43.5 fL; WBC 6.53 10^3/uL (4.4-10.8)
[2020-08-06 15:40] LABS: ALT 31 U/L (14-59); AST 27 U/L (15-37); Albumin 3.5 g/dL (3.4-5.0); Alkaline Phosphatase 104 U/L (46-116); BUN 26 mg/dL (7-18); Bilirubin, Direct 0.1 mg/dL (0.0-0.2); Bilirubin, Total 0.3 mg/dL (0.2-1.0); CREATININE 0.9 mg/dL (0.55-1.02); Total Protein 6.8 g/dL (6.4-8.2)
== END 2020-08-06 04:23 | disposition home or self-care (01) ==
LOC: LBO 04:22
PROVIDERS: PCP Family Medicine; Visit Provider Internal Medicine Rheumatology
DX: L40.50 Arthropathic psoriasis, unspecified (principal); Z79.899 Other long term (current) drug therapy
CPT/HCPCS: 36415; 80076; 84520; 85027; 82565

== ENCOUNTER 2020-08-13 02:50 | Outpatient (RCR) | payer MEDICARE, OTHER, SELFPAY ==
[2020-07-12 00:14] VITALS: BP 109/68; PULSE 68; RESP 16; TEMP 36.4
[2020-08-13] MEDS: Normal Saline Flush 10 ML SYR IVP (11:01)
[2020-08-13 11:35] VITALS: BP 104/65; PULSE 68; RESP 16; TEMP 36.8; O2SAT 97
[2020-08-13 11:50] VITALS: BP 102/64; PULSE 71; RESP 16; TEMP 37; O2SAT 94
[2020-08-13 12:05] VITALS: BP 112/73; PULSE 69; RESP 16; TEMP 37.1; O2SAT 96
[2020-08-13 12:20] VITALS: BP 118/75; PULSE 80; RESP 16; TEMP 36.9; O2SAT 98
[2020-08-13 12:50] VITALS: BP 110/66; PULSE 76; RESP 16; TEMP 37.1; O2SAT 96
[2020-08-13 13:20] VITALS: BP 118/64; PULSE 82; RESP 16; TEMP 37; O2SAT 99
== END 2020-09-10 23:59 | disposition home or self-care (01) ==
LOC: INF 02:50
PROVIDERS: PCP Family Medicine; Visit Provider Internal Medicine
DX: L40.50 Arthropathic psoriasis, unspecified (principal); Z79.899 Other long term (current) drug therapy
CPT/HCPCS: 96365; 96366; 96413; 96415; J1745

== ENCOUNTER → 2020-10-02 08:51 | Outpatient (BNVA) | payer MEDICARE, OTHER, SELFPAY | PROVIDERS: PCP Family Medicine; Referring Provider Family Medicine; Visit Provider Physical Therapy Assistant | DX: Z12.11 Encounter for screening for malignant neoplasm of colon (principal) ==

== ENCOUNTER 2020-10-08 02:58 | Outpatient (RCR) | payer MEDICARE, OTHER, SELFPAY ==
[2020-09-11 00:15] VITALS: BP 118/64; PULSE 82; RESP 16; TEMP 37
[2020-10-08] MEDS: Normal Saline Flush 10 ML SYR IVP (11:05)
[2020-10-08 11:55] VITALS: BP 114/63; PULSE 64; RESP 12; TEMP 36.8; O2SAT 97
[2020-10-08 12:10] VITALS: BP 114/60; PULSE 70; RESP 12; TEMP 36.9; O2SAT 97
[2020-10-08 12:25] VITALS: BP 114/68; PULSE 63; RESP 12; TEMP 36.7; O2SAT 97
[2020-10-08 12:40] VITALS: BP 109/54; PULSE 63; RESP 12; TEMP 36.9; O2SAT 97
[2020-10-08 12:55] VITALS: BP 110/61; PULSE 69; RESP 12; TEMP 36.9; O2SAT 97
[2020-10-08 13:30] VITALS: BP 107/57; PULSE 72; RESP 12; TEMP 36.6; O2SAT 95
== END 2020-10-11 23:59 | disposition home or self-care (01) ==
LOC: INF 02:58
PROVIDERS: PCP Family Medicine; Visit Provider Internal Medicine
DX: L40.59 Other psoriatic arthropathy (principal)
CPT/HCPCS: 96365; 96366; 96413; 96415; J1745

== ENCOUNTER 2020-10-17 11:09 | Day surgery (SDC) | payer MEDICARE, OTHER, SELFPAY ==
--- NOTE | 2020-10-16 13:54 | W.ANESPRE ---
General Info Date of Service Date Performed: 10/17/20 Height: 5 ft 1 in Weight: 54.544 kg Body Mass Index (BMI): 22.7 Surgical Procedure: Operation Date: 10/17/20 09:20 Proposed Procedures Side Surgeon cristi Parra, DO Meds Allergies and Home Medications Allergies Allergy/AdvReac Type Severity Reaction Status Date / Time No Known Allergies Allergy Verified 10/17/20 11:24 Home Medication Medication Instructions Recorded cholecalciferol (vitamin D3) 1,000 unit PO DAILY 07/25/12 folic acid 1 mg PO DAILY tab-cap 07/25/12 infliximab [Remicade] 500 mg IV q 8 weeks vial 07/25/12 multivitamin 1 ea PO DAILY 07/25/12 phenazopyridine [Azo] 95 mg PO BID tab 03/18/14 clobetasol-emollient [Temovate 30 gm TOPICAL DAILY script 07/02/15 Emollient 0.05% Crm] meloxicam 7.5 mg tablet 7.5 mg PO DAILY PRN 06/22/18 methotrexate sodium 2.5 mg tablet 5 mg PO .every other week tab 01/29/20 bisacodyl 5 mg tablet,delayed 5 mg PO ONCE #4 tab 10/02/20 release polyethylene glycol 3350 17 238 g PO ONCE #238 g 10/02/20 gram/dose oral powder Current Visit Medications: Current Medications Generic Name Dose Route Start Last Admin Trade Name Freq PRN Reason Stop Dose Admin Ringer's Solution 1,000 mls @ 80 mls/hr 10/17/20 06:00 IV 11/15/20 23:59 INFUSION WINSTON IV Miscellaneous Supplies 1 each 10/17/20 06:00 Iv Access IV 11/15/20 23:59 DIRECTED WINSTON Sodium Chloride 0 ml 10/17/20 06:00 Normal Saline Flush 10 Ml Syr IV 11/15/20 23:59 PRN PRN Sodium Chloride 0 ml 10/17/20 06:00 Normal Saline 10 Ml Vial IJ 11/15/20 23:59 DIRECTED PRN Sterile Water 0 ml 10/17/20 06:00 Water,Injection,Sterile 10 Ml Vial IJ 11/15/20 23:59 DIRECTED PRN PFSH Active Problems Active Problems: Problem Status Onset Code Impacted cerumen 04/09/13 H61.20 Murmur, cardiac R01.1 Vaginal atrophy 03/29/14 N95.2 Urinary frequency 03/29/14 R35.0 Sleep disturbance, unspecified 05/11/11 G47.9 Psoriatic arthropathy 06/26/96 L40.50 Hyperlipidemia 03/14/00 E78.5 Disorder of bone and cartilage, unspecified 12/15/06 M89.9, M94.9 Acquired absence of both cervix and uterus 12/14/16 Z90.710 Medical History Medical History Disorder of bone and cartilage, unspecified (12/15/06) osteopenia on DEXA [facility] DEXA 01/01/15 [facility] Herpes zoster HLD (hyperlipidemia) Hyperlipidemia (03/14/00) LDL 158 IN 2000; SIMILAR 02/2009; CALCULATED RISK 8%, GOAL LDL <130 Murmur, cardiac pt. 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 Hyst and L oophrectomy for fibroids Oophrectomy, Left (~1998) with hyst Tobacco Smoking/Tobacco Use Status: Former Tobacco Use Alcohol Alcohol Intake: former Substance Use Substance use: Never Substance use type: does not use Prental History History 0 Para Hx # Term Pregnancies Multiple births Hx # Pregnancies Ectopic pregnancies AB induced Hx Number of Living Children AB spontaneous Vital Signs and Lab Results Vital Signs Most Recent Vital Signs in EMR: Temp Pulse Resp BP Pulse Ox 36.6 C 91 H 18 105/53 L 95 10/17/20 11:19 10/17/20 11:19 10/17/20 11:19 10/17/20 11:19 10/17/20 11:19 Lab Results Blood Type / Crossmatch: No Data to Display Complete Blood Count: No Data to Display Complete Metabolic Panel: No Data to Display Liver Function Panel: No Data to Display Coagulation Panel: No Data to Display Cardiac Panel: No Data to Display Arterial Blood Gas: No Data to Display Venous Blood Gas: No Data to Display Pancreas Panel: No Data to Display Thyroid Panel: No Data to Display Infectious Disease: No Data to Display Blood Cultures: No Data to Display Toxicology Panel: No Data to Display Anesthesia Assessment and Plan Anesthesia History Personal History: No History of Anesthesia Complications Family History: No Family History of Anesthesia Complications Exercise Tolerance Exercise Tolerance: Metabolic Equivalents>4 Cardiac & Pulmonary Exam Cardiac Exam: Normal S1/S2 Heart Sounds Pulmonary Exam: Clear Bilateral Breath Sounds Airway Exam Known Difficult Airway: No Mallampati Class: 3 Mouth Opening: Narrow (< 3cm) Thyromental Distance: Less than 3 cm Neck Range of Motion: Full ROM Neck Circumference: Normal Teeth Condition: Normal Dentition ASA Classification ASA Score: ASA 2 Emergency Case?: No NPO Status NPO Status: NPO Clears >2 hours, Solids >8 hours Anesthesia Plan Resuscitation Status: Full Code Anesthesia Technique: General Anesthesia Airway Planned: Natural Airway Monitors Used: Standard Monitors Preoperative Comments:: 70 yo female for screening colo. sig PMHx psoriatic arthritis (Remicade, methotrexate),
[2020-10-17 11:19] VITALS: BP 105/53; PULSE 91; RESP 18; TEMP 36.6; O2SAT 95
[2020-10-17 12:35] VITALS: BMI 22.7
[2020-10-17] MEDS: Lactated Ringers 1,000 ML 80 ML IV (13:08)
--- NOTE | 2020-10-17 13:29 | W.COLOREPORT ---
Date of service: 10/17/20 Time of Service: 13:30 Colonoscopy Report Date of procedure: 10/17/20 Pre-op diagnosis general: screen Post-op diagnosis procedure note: other (severe diverticula) Anesthesia Type: General:No Airway Estimated blood loss (mL): 0 Pathology: none sent Complications: None Disposition: same day Retraction Time: 7 Procedure Description: After informed consent was obtained the patient was taken to the procedure room and placed in a left decubitous position. Monitors were applied and a time out was done. The patients name, date of , procedure, allergies to medications and metal in their body was reviewed. The patient was then sedated. Once sedated and comfortable a rectal exam was done. External exam was normal. Internal exam revealed a normal sphincter tone and no palpable masses. The scope was then introduced and retrofelexed. no internal hemorrhoids were identified. The scope was then advanced to the hepatic flexure. Once we get to the flexure, pt HR continues to drop. We tryied mult manuvers to get aorund the corner, including pressure and supine positioning. The TI and appendiceal orifice were identified. The prep was good. The scope was then slowly retracted over [6 minutes back into the rectum. She has severe diverticula that started in the sigmoid colon extend all the way over to the right colon. Although there is no signs of active bleeding her no polyps are noted today. Once he gets to the hepatic flexure I could not get the scope to pass beyond this point. The procedure was abandoned. I do not the scope was removed and the patient was woken up and taken back to Same day surgery in stable condition. The patient tolerated the procedure well and there were no immediate complications. Follow up: The patient does not require any further routine screening colonoscopies, unless they develop changes in bowel habits or other new gastrointestinal complaints.
[2020-10-17 13:32] VITALS: BP 116/65; PULSE 72; RESP 16; TEMP 36.3; O2SAT 97
--- NOTE | 2020-10-17 13:33 | PDOC.DSDIS_ITS ---
Discharge Plan Disposition Patient Disposition: HOME Condition: Stable Discharge Details Reason For Visit: colon scope Attending Provider: Saima Parra Primary Care Provider: Montez Houston Home Meds and New Rx's Prescriptions: Continued folic acid 1 MG tablet 1 mg PO DAILY RF: 0 cholecalciferol (vitamin D3) 1,000 UNIT capsule 1,000 unit PO DAILY RF: 0 multivitamin 1 EACH tablet 1 ea PO DAILY RF: 0 Remicade 100 MG recon soln 500 mg IV q 8 weeks RF: 0 phenazopyridine [Azo] 95 MG tablet 95 mg PO BID RF: 0 clobetasol-emollient [Temovate E] 30 GM cream 30 gm Topical DAILY RF: 0 meloxicam [Mobic] 7.5 mg tablet 7.5 mg PO DAILY PRNRF: 0 methotrexate sodium 2.5 mg tablet 5 mg PO .every other week RF: 0 Discontinued bisacodyl [Dulcolax (bisacodyl)] 5 mg tablet,delayed release (DR/EC) 5 mg PO ONCE Qty: 4 RF: 0 polyethylene glycol 3350 17 gram/dose powder 238 g PO ONCE Qty: 238 RF: 0 Discharge Instructions Additional Instructions: DSU Colonoscopy Post- Op Instructions Instructions for Everyone who is given Anesthesia: For your safety, please do the following for the next twenty-four (24) hours: *Do Not operate a motor vehicle (car, truck, motorcycle, etc.) *Do Not drink alcoholic beverages or use any recreational drugs for the first 24 hours or while taking pain medications. The medications in your body may have a reaction that can be dangerous. *Do Not make any important decisions or sign any important papers. Findings:severe diverticula Follow up: Does not require any further colonscopy's 1. No lifting over 20 pounds or strenuous activity for the first 24 hours after your procedure. After 24 hours there are no restrictions on your activity but you may feel fatigued for a few days. 2. After you arrive home you may have a light meal and return to your normal diet as you can tolerate it without feeling sick to your stomach. 3. You may have a bloated, gaseous feeling in your belly (abdomen) after a colonoscopy. Passing gas and belching will help. Walking or lying down on your left side with your knees flexed may relieve the discomfort. Call the office at [phone] (Office) or [phone] (Hospital) right away if you notice any of the following: a.Vomiting of blood or ?coffee ground stools?. b.Rectal bleeding 1Tbsp, blood clots or continuous bleeding. c.Severe belly (abdominal) pain. d.A hard distended belly (abdomen) and an inability to pass gas. 4. Please don?t expect to have a normal BM (bowel movement) for 2-3 days after your procedure. 5. If there are questions regarding the findings of your procedure, please contact your doctor 6. If you are unable to contact your doctor with a problem, contact the hospital at [phone]. 7. Continue all your regular medications unless directed otherwise. I understand the above instructions and have no questions. Signature of Patient or Adult Escort Name of Responsible Adult Escort Signature of Nurse Date/Time Activity:: see above Diet:: As Tolerated Discharge Orders Discharge Orders: Discharge Order (Routine); Ordered 10/16/20 Ordered By: Saima Parra DS: Diagnosis Discharge Diagnosis (1) Diverticula of colon: Status: Acute
[2020-10-17 14:02] VITALS: BP 120/54; PULSE 71; RESP 16; TEMP 36.5; O2SAT 99
== END 2020-10-17 11:10 | disposition home or self-care (01) ==
PROVIDERS: PCP Family Medicine; Visit Provider Surgery
PROC: 0DJD8ZZ Inspection of Lower Intestinal Tract, Via Natural or Artificial Opening Endoscopic (ICD-10-PCS; CPT 45378; principal; 2020-10-17 11:30)
DX: Z12.11 Encounter for screening for malignant neoplasm of colon (principal); K57.30 Diverticulosis of large intestine without perforation or abscess without bleeding
CPT/HCPCS: G0121; J2001

== ENCOUNTER 2020-11-03 02:58 | Outpatient (CLI) | payer MEDICARE, OTHER, SELFPAY ==
[2020-11-03 15:13] LABS: HCT 39.8 % (36.0-46.0); HGB 12.6 g/dL (11.2-15.7); MCH 30.8 pg (27.0-33.0); MCHC 31.7 % (32.0-36.0); MCV 97.3 fL (80-95); MPV 9.4 fL (8.0-11.0); Platelet Count 222 10^3/uL (130-400); RBC 4.09 10^6/uL (3.93-5.22); RDW 12.5 % (11.7-14.6); WBC 6.78 10^3/uL (4.4-10.8)
[2020-11-03 16:46] LABS: ALT 27 U/L (14-59); AST 22 U/L (15-37); Albumin 3.4 g/dL (3.4-5.0); Alkaline Phosphatase 90 U/L (46-116); Anion Gap 6.4 mmol/L (3-11); BUN 24 mg/dL (7-18); Bilirubin, Total 0.3 mg/dL (0.2-1.0); CO2 29.6 mmol/L (21.0-32.0); CREATININE 0.8 mg/dL (0.55-1.02); Calcium 9.1 mg/dL (8.5-10.1); Chloride 104 mmol/L (98-107); Glucose 127 mg/dL (74-106); Potassium 4.6 mmol/L (3.5-5.1); Sodium 140 mmol/L (136-145); Total Protein 6.9 g/dL (6.4-8.2)
== END 2020-11-03 02:59 | disposition home or self-care (01) ==
PROVIDERS: PCP Family Medicine; Visit Provider Nurse Practitioner Family
DX: L40.50 Arthropathic psoriasis, unspecified (principal); Z79.899 Other long term (current) drug therapy
CPT/HCPCS: 36415; 80053; 85027

== ENCOUNTER 2020-12-05 05:30 | Outpatient (RCR) | payer MEDICARE, OTHER, SELFPAY ==
[2020-10-12 00:08] VITALS: BP 107/57; PULSE 72; RESP 12; TEMP 36.6
[2020-12-05] VITALS (7 sets, daily range): BP systolic 103–131; BP diastolic 62–82; PULSE 62–73; RESP 17–18; TEMP 35.5–36.2; O2SAT 95–98
[2020-12-05] MEDS: Normal Saline Flush 10 ML SYR IVP (11:11)
== END 2020-12-11 23:59 | disposition home or self-care (01) ==
LOC: INF 05:30
PROVIDERS: PCP Family Medicine; Visit Provider Internal Medicine
DX: L40.50 Arthropathic psoriasis, unspecified (principal)
CPT/HCPCS: 96365; 96366; 96413; 96415; J1745

== ENCOUNTER 2021-01-29 02:14 | Outpatient (CLI) | payer MEDICARE, OTHER, SELFPAY ==
[2021-01-29 10:35] LABS: Abs Immature Grans 0.03 10^3/uL (0.0-0.06); Absolute Basophil Count 0.06 10^3/uL (0.0-0.2); Absolute Eosinophil Count 0.24 10^3/uL (0.0-0.7); Absolute Lymphocyte Count 2.32 10^3/uL (1.2-3.4); Absolute Monocyte Count 0.59 10^3/uL (0.1-0.8); Absolute Neutrophil Count 4.47 10^3/uL (1.2-6.7); Basophils % 0.8; Eosinophils % 3.1; HGB 12.3 g/dL (11.2-15.7); Immature Grans % 0.4; Lymphocytes % 30.1; MCH 31.1 pg (27.0-33.0); MCHC 32.4 % (32.0-36.0); MPV 9.1 fL (8.0-11.0); Monocytes % 7.7; Neutrophils % 57.9; Nucleated RBC 0 %; Platelet Count 249 10^3/uL (130-400); RBC 3.96 10^6/uL (3.93-5.22); RDW-SD 46.2 fL; WBC 7.71 10^3/uL (4.4-10.8)
[2021-01-29 10:37] LABS: ESR 28 mm/hr (0-30)
[2021-01-29 12:22] LABS: ALT 26 U/L (14-59); AST 21 U/L (15-37); Albumin 3.3 g/dL (3.4-5.0); Alkaline Phosphatase 97 U/L (46-116); Anion Gap 7.8 mmol/L (3-11); BUN 22 mg/dL (7-18); Bilirubin, Total 0.5 mg/dL (0.2-1.0); C-Reactive Protein 2.19 mg/dL (0.0-0.3); CO2 29.2 mmol/L (21.0-32.0); CREATININE 0.7 mg/dL (0.55-1.02); Calcium 8.6 mg/dL (8.5-10.1); Chloride 109 mmol/L (98-107); Glucose 66 mg/dL (74-106); Potassium 4.4 mmol/L (3.5-5.1); Sodium 146 mmol/L (136-145); Total Protein 6.8 g/dL (6.4-8.2)
== END 2021-01-29 02:15 | disposition home or self-care (01) ==
LOC: LBO 02:14
PROVIDERS: Nurse Practitioner; PCP Family Medicine; Visit Provider Nurse Practitioner Family
DX: L40.50 Arthropathic psoriasis, unspecified (principal); Z79.899 Other long term (current) drug therapy
CPT/HCPCS: 36415; 80053; 85652; 85025; 86140

== ENCOUNTER 2021-01-30 02:29 | Outpatient (RCR) | payer MEDICARE, OTHER, SELFPAY ==
[2020-12-12 00:02] VITALS: BP 124/73; PULSE 73; RESP 18; TEMP 35.9
[2021-01-30] VITALS (7 sets, daily range): BP systolic 105–114; BP diastolic 64–74; PULSE 60–71; RESP 16–17; TEMP 34.4–36.4; O2SAT 96–99
[2021-01-30] MEDS: Normal Saline Flush 10 ML SYR IVP (11:04)
== END 2021-02-10 23:59 | disposition home or self-care (01) ==
LOC: INF 02:29
PROVIDERS: PCP Family Medicine; Visit Provider Internal Medicine
DX: L40.50 Arthropathic psoriasis, unspecified (principal)
CPT/HCPCS: 96365; 96366; 96413; 96415; J1745

== ENCOUNTER 2021-04-17 01:05 | Outpatient (RCR) | payer MEDICARE, OTHER, SELFPAY ==
[2021-02-11 00:12] VITALS: BP 105/65; PULSE 69; RESP 16; TEMP 36.4
[2021-04-17] VITALS (7 sets, daily range): BP systolic 100–128; BP diastolic 64–75; PULSE 58–68; RESP 16–17; TEMP 35.1–36.5; O2SAT 96–98
[2021-04-17] MEDS: Normal Saline Flush 10 ML SYR IVP (11:01)
== END 2021-05-11 23:59 | disposition home or self-care (01) ==
LOC: INF 01:05
PROVIDERS: PCP Family Medicine; Visit Provider Internal Medicine
DX: L40.50 Arthropathic psoriasis, unspecified (principal)
CPT/HCPCS: 96365; 96366; 96413; 96415; J1745

== ENCOUNTER 2021-04-27 01:41 | Outpatient (CLI) | payer MEDICARE, SELFPAY ==
[2021-04-27 14:39] LABS: Abs Immature Grans 0.02 10^3/uL (0.0-0.06); Absolute Basophil Count 0.04 10^3/uL (0.0-0.2); Absolute Eosinophil Count 0.19 10^3/uL (0.0-0.7); Absolute Lymphocyte Count 2.44 10^3/uL (1.2-3.4); Absolute Monocyte Count 0.38 10^3/uL (0.1-0.8); Absolute Neutrophil Count 2.82 10^3/uL (1.2-6.7); Basophils % 0.7; ESR 12 mm/hr (0-30); Eosinophils % 3.2; HCT 41.2 % (36.0-46.0); HGB 13.1 g/dL (11.2-15.7); Immature Grans % 0.3; Lymphocytes % 41.4; MCH 31.2 pg (27.0-33.0); MCHC 31.8 % (32.0-36.0); MCV 98.1 fL (80-95); MPV 9.4 fL (8.0-11.0); Monocytes % 6.5; Neutrophils % 47.9; Nucleated RBC 0 %; Platelet Count 227 10^3/uL (130-400); RDW 12.4 % (11.7-14.6); RDW-SD 44.8 fL; WBC 5.89 10^3/uL (4.4-10.8)
[2021-04-27 16:03] LABS: Calcium 8.9 mg/dL (8.5-10.1)
[2021-04-27 16:04] LABS: ALT 30 U/L (14-59); AST 29 U/L (15-37); Albumin 3.5 g/dL (3.4-5.0); Alkaline Phosphatase 97 U/L (46-116); Anion Gap 3.6 mmol/L (3-11); BUN 28 mg/dL (7-18); Bilirubin, Total 0.3 mg/dL (0.2-1.0); C-Reactive Protein 0.26 mg/dL (0.0-0.3); CO2 30.4 mmol/L (21.0-32.0); CREATININE 0.8 mg/dL (0.55-1.02); Chloride 105 mmol/L (98-107); Glucose 88 mg/dL (74-106); Potassium 4.5 mmol/L (3.5-5.1); Sodium 139 mmol/L (136-145); Total Protein 7.1 g/dL (6.4-8.2)
== END 2021-04-27 01:42 | disposition home or self-care (01) ==
LOC: LBO 01:41
PROVIDERS: PCP Family Medicine; Visit Provider Nurse Practitioner
DX: L40.50 Arthropathic psoriasis, unspecified (principal); Z79.899 Other long term (current) drug therapy
CPT/HCPCS: 36415; 80053; 85652; 85025; 86140

== ENCOUNTER 2021-06-12 01:09 | Outpatient (RCR) | payer MEDICARE, OTHER, SELFPAY ==
[2021-05-12 00:09] VITALS: BP 128/75; PULSE 67; RESP 16; TEMP 36.4
[2021-06-12] VITALS (7 sets, daily range): BP systolic 97–113; BP diastolic 54–68; PULSE 64–75; RESP 17–18; TEMP 35.7–36.5; O2SAT 97–99
[2021-06-12] MEDS: Normal Saline Flush 10 ML SYR IVP (11:32)
== END 2021-07-11 23:59 | disposition home or self-care (01) ==
LOC: INF 01:09
PROVIDERS: PCP Family Medicine; Visit Provider Internal Medicine
DX: L40.50 Arthropathic psoriasis, unspecified (principal)
CPT/HCPCS: 96365; 96366; 96413; 96415; J1745

== ENCOUNTER 2021-07-21 02:01 | Outpatient (CLI) | payer MEDICARE, OTHER, SELFPAY ==
[2021-07-21 12:06] LABS: Abs Immature Grans 0.02 10^3/uL (0.0-0.06); Absolute Basophil Count 0.05 10^3/uL (0.0-0.2); Absolute Eosinophil Count 0.12 10^3/uL (0.0-0.7); Absolute Lymphocyte Count 2.87 10^3/uL (1.2-3.4); Absolute Monocyte Count 0.57 10^3/uL (0.1-0.8); Basophils % 0.7; ESR 16 mm/hr (0-30); Eosinophils % 1.7; HCT 38.3 % (36.0-46.0); HGB 12.3 g/dL (11.2-15.7); Immature Grans % 0.3; Lymphocytes % 41.4; MCH 31.4 pg (27.0-33.0); MCHC 32.1 % (32.0-36.0); MCV 98 fL (80-95); MPV 9.3 fL (8.0-11.0); Monocytes % 8.2; Neutrophils % 47.7; Platelet Count 208 10^3/uL (130-400); RBC 3.92 10^6/uL (3.93-5.22); RDW 12.3 % (11.7-14.6); RDW-SD 44.3 fL; WBC 6.93 10^3/uL (4.4-10.8)
[2021-07-21 13:49] LABS: ALT 23 U/L (14-59); AST 22 U/L (15-37); Albumin 3.5 g/dL (3.4-5.0); Alkaline Phosphatase 94 U/L (46-116); Anion Gap 7.9 mmol/L (3-11); BUN 25 mg/dL (7-18); Bilirubin, Total 0.4 mg/dL (0.2-1.0); C-Reactive Protein 0.22 mg/dL (0.0-0.3); CO2 27.1 mmol/L (21.0-32.0); CREATININE 0.9 mg/dL (0.55-1.02); Calcium 8.4 mg/dL (8.5-10.1); Chloride 99 mmol/L (98-107); Glucose 68 mg/dL (74-106); Potassium 4.2 mmol/L (3.5-5.1); Sodium 134 mmol/L (136-145); Total Protein 6.9 g/dL (6.4-8.2)
== END 2021-07-21 02:02 | disposition home or self-care (01) ==
LOC: LBO 02:01
PROVIDERS: PCP Family Medicine; Visit Provider Nurse Practitioner
DX: L40.50 Arthropathic psoriasis, unspecified; Z79.899 Other long term (current) drug therapy
CPT/HCPCS: 36415; 80053; 85652; 85025; 86140

== ENCOUNTER 2021-08-07 01:24 | Outpatient (RCR) | payer MEDICARE, OTHER, SELFPAY ==
[2021-07-12 00:10] VITALS: BP 105/68; PULSE 73; RESP 17; TEMP 35.7
[2021-08-07] VITALS (7 sets, daily range): BP systolic 96–117; BP diastolic 45–69; PULSE 64–75; RESP 17; TEMP 35.3–36; O2SAT 96–98
[2021-08-07] MEDS: diphenhydrAMINE 25 MG CAP PO (10:53)
[2021-08-07] MEDS: Acetaminophen 325 MG TAB 650 MG PO (10:53)
[2021-08-07] MEDS: Normal Saline Flush 10 ML SYR IVP (10:54)
== END 2021-08-11 23:59 | disposition home or self-care (01) ==
LOC: INF 01:24
PROVIDERS: PCP Family Medicine; Visit Provider Internal Medicine
DX: L40.50 Arthropathic psoriasis, unspecified (principal)
CPT/HCPCS: 96365; 96366; J1745

== ENCOUNTER → 2021-08-21 10:55 | Outpatient (CLI) | payer MEDICARE, OTHER, SELFPAY ==
--- NOTE | 2021-08-21 12:00 | DI.RAD_ITS ---
Exam(s) XR CHEST 2V PA LATERAL EXAM: XR CHEST 2V PA LATERAL CLINICAL HISTORY: 2 months of cough/dyspnea, BRONCHITIS--J40 TECHNIQUE: 2D digital imaging was performed of the chest. Two images were obtained. PA and lateral views were obtained. COMPARISON: CR CHEST ONE VIEW IN RAD DEPT from 07/31/2014 FINDINGS: MEDIASTINUM: Normal. HEART: Normal. PULMONARY VASCULATURE: Normal. LUNGS: Clear. The lungs appear hyperinflated suggesting underlying COPD. PLEURAL SPACE: No pleural effusion or pneumothorax. BONE:Within normal limits for the patient's age. OTHER FINDINGS:Normal. IMPRESSION: No acute pulmonary findings. DATA REPOSITORY: RADIATION DOSE DELIVERED:
== END ==
PROVIDERS: PCP Family Medicine; Visit Provider Family Medicine
DX: J40 Bronchitis, not specified as acute or chronic (principal)
CPT/HCPCS: 71046

== ENCOUNTER 2021-10-02 01:43 | Outpatient (RCR) | payer MEDICARE, OTHER, SELFPAY ==
[2021-08-12 00:05] VITALS: BP 101/47; PULSE 71; RESP 17; TEMP 35.6
[2021-10-02 11:05] VITALS: BP 117/74; PULSE 67; RESP 16; TEMP 36.7; O2SAT 97
[2021-10-02] MEDS: Normal Saline Flush 10 ML SYR IVP (11:30)
[2021-10-02 13:39] VITALS: BP 134/79; PULSE 78; RESP 16; TEMP 36.4; O2SAT 98
== END 2021-10-11 23:59 | disposition home or self-care (01) ==
LOC: INF 01:43
PROVIDERS: PCP Family Medicine; Visit Provider Internal Medicine
DX: L40.50 Arthropathic psoriasis, unspecified (principal)
CPT/HCPCS: 96365; 96366; J1745

== ENCOUNTER 2021-10-13 10:34 | Outpatient (CLI) | payer MEDICARE, OTHER, SELFPAY ==
[2021-10-13 14:02] LABS: Abs Immature Grans 0.02 10^3/uL (0.0-0.06); Absolute Basophil Count 0.05 10^3/uL (0.0-0.2); Absolute Eosinophil Count 0.14 10^3/uL (0.0-0.7); Absolute Lymphocyte Count 2.81 10^3/uL (1.2-3.4); Absolute Monocyte Count 0.49 10^3/uL (0.1-0.8); Absolute Neutrophil Count 3.48 10^3/uL (1.2-6.7); Basophils % 0.7; HCT 37.1 % (36.0-46.0); HGB 12.3 g/dL (11.2-15.7); Immature Grans % 0.3; Lymphocytes % 40.2; MCH 31.4 pg (27.0-33.0); MCHC 33.2 % (32.0-36.0); MCV 95 fL (80-95); MPV 9.5 fL (8.0-11.0); Neutrophils % 49.8; Platelet Count 227 10^3/uL (130-400); RBC 3.92 10^6/uL (3.93-5.22); RDW 12.5 % (11.7-14.6); RDW-SD 43.3 fL; WBC 6.99 10^3/uL (4.4-10.8)
[2021-10-13 14:04] LABS: ESR 22 mm/hr (0-30)
[2021-10-13 14:38] LABS: ALT 25 U/L (14-59); AST 26 U/L (15-37); Albumin 3.3 g/dL (3.4-5.0); Alkaline Phosphatase 87 U/L (46-116); Anion Gap 8.3 mmol/L (3-11); BUN 20 mg/dL (7-18); Bilirubin, Total 0.3 mg/dL (0.2-1.0); C-Reactive Protein 0.25 mg/dL (0.0-0.3); CO2 24.7 mmol/L (21.0-32.0); CREATININE 0.8 mg/dL (0.55-1.02); Chloride 100 mmol/L (98-107); Glucose 90 mg/dL (74-106); Sodium 133 mmol/L (136-145); Total Protein 7.2 g/dL (6.4-8.2)
== END 2021-10-13 10:35 | disposition home or self-care (01) ==
LOC: LBO 10:34
PROVIDERS: PCP Family Medicine; Visit Provider Nurse Practitioner
DX: L40.50 Arthropathic psoriasis, unspecified (principal); Z79.899 Other long term (current) drug therapy
CPT/HCPCS: 36415; 80053; 85652; 85025; 86140

== ENCOUNTER 2021-11-27 01:12 | Outpatient (RCR) | payer MEDICARE, OTHER, SELFPAY ==
[2021-10-12] VITALS: BP 134/79; PULSE 78; RESP 16; TEMP 36.4
[2021-11-27] VITALS (7 sets, daily range): BP systolic 101–122; BP diastolic 51–77; PULSE 66–75; RESP 16–18; TEMP 35.2–36.7; O2SAT 97–100
[2021-11-27] MEDS: Normal Saline Flush 10 ML SYR IVP (11:18)
== END 2021-12-11 23:59 | disposition home or self-care (01) ==
LOC: INF 01:12
PROVIDERS: PCP Family Medicine; Visit Provider Internal Medicine
DX: L40.52 Psoriatic arthritis mutilans (principal)
CPT/HCPCS: 96365; 96366; J1745

== ENCOUNTER 2022-01-22 00:57 | Outpatient (RCR) | payer MEDICARE, SELFPAY ==
[2021-12-12 00:15] VITALS: BP 117/77; PULSE 68; RESP 16; TEMP 35.9
[2022-01-22 11:00] VITALS: BP 107/58; PULSE 68; RESP 17; TEMP 36.4; O2SAT 95
[2022-01-22] MEDS: Normal Saline Flush 10 ML SYR IVP (11:40)
[2022-01-22 11:57] VITALS: BP 113/64; PULSE 62; RESP 17; TEMP 36.2; O2SAT 97
[2022-01-22 12:12] VITALS: BP 120/59; PULSE 65; RESP 16; TEMP 36; O2SAT 95
[2022-01-22 12:25] VITALS: BP 112/59; PULSE 66; RESP 17; TEMP 36.7; O2SAT 97
[2022-01-22 12:51] VITALS: BP 110/52; PULSE 69; RESP 17; TEMP 37.2; O2SAT 98
[2022-01-22 13:20] VITALS: BP 109/47; PULSE 72; RESP 16; TEMP 37.4; O2SAT 96
== END 2022-02-10 23:59 | disposition home or self-care (01) ==
LOC: INF 00:57
PROVIDERS: PCP Family Medicine; Visit Provider Nurse Practitioner Acute Care
DX: L40.50 Arthropathic psoriasis, unspecified (principal)
CPT/HCPCS: 96365; 96366; J1745

== ENCOUNTER 2022-03-16 02:36 | Outpatient (RCR) | payer MEDICARE, SELFPAY ==
[2022-02-11 00:02] VITALS: BP 109/47; PULSE 72; RESP 16; TEMP 37.4
[2022-03-16] VITALS (7 sets, daily range): BP systolic 123–150; BP diastolic 55–71; PULSE 64–79; RESP 16–17; TEMP 35.9–36.9; O2SAT 96–99
[2022-03-16] MEDS: Normal Saline Flush 10 ML SYR IVP (11:20)
== END 2022-04-13 23:59 | disposition home or self-care (01) ==
LOC: INF 02:36
PROVIDERS: PCP Family Medicine; Visit Provider Nurse Practitioner Acute Care
DX: L40.52 Psoriatic arthritis mutilans (principal)
CPT/HCPCS: 96365; 96366; J1745

== ENCOUNTER 2022-04-20 03:43 | Outpatient (CLI) | payer MEDICARE, SELFPAY ==
[2022-04-20 13:11] LABS: Abs Immature Grans 0.01 10^3/uL (0.0-0.06); Absolute Basophil Count 0.04 10^3/uL (0.0-0.2); Absolute Lymphocyte Count 2.96 10^3/uL (1.2-3.4); Absolute Neutrophil Count 3.95 10^3/uL (1.2-6.7); Basophils % 0.5; Eosinophils % 2.6; HCT 38.1 % (36.0-46.0); HGB 12.5 g/dL (11.2-15.7); Immature Grans % 0.1; Lymphocytes % 38.6; MCH 31.3 pg (27.0-33.0); MCHC 32.8 % (32.0-36.0); MCV 95 fL (80-95); Monocytes % 6.5; Neutrophils % 51.7; Platelet Count 249 10^3/uL (130-400); RDW 12.4 % (11.7-14.6); RDW-SD 42.8 fL; WBC 7.66 10^3/uL (4.4-10.8)
[2022-04-20 13:17] LABS: ESR 28 mm/hr (0-30)
[2022-04-20 14:25] LABS: ALT 20 U/L (14-59); AST 21 U/L (15-37); Albumin 3.4 g/dL (3.4-5.0); Alkaline Phosphatase 85 U/L (46-116); Anion Gap 5.2 mmol/L (3-11); BUN 23 mg/dL (7-18); Bilirubin, Total 0.4 mg/dL (0.2-1.0); C-Reactive Protein 1.19 mg/dL (0.0-0.3); CO2 30.8 mmol/L (21.0-32.0); Calcium 8.9 mg/dL (8.5-10.1); Chloride 102 mmol/L (98-107); Estimated GFR 60.23 (mL/min/1.73m2); Glucose 86 mg/dL (74-106); Potassium 4.1 mmol/L (3.5-5.1); Sodium 138 mmol/L (136-145); Total Protein 7.4 g/dL (6.4-8.2)
== END 2022-04-20 03:44 | disposition home or self-care (01) ==
LOC: LBO 03:43
PROVIDERS: PCP Family Medicine; Visit Provider Nurse Practitioner
DX: L40.50 Arthropathic psoriasis, unspecified (principal); Z79.899 Other long term (current) drug therapy
CPT/HCPCS: 36415; 80053; 85652; 85025; 86140

== ENCOUNTER 2022-04-22 14:40 | Outpatient (REF) | payer MEDICARE, SELFPAY | END 2022-04-22 14:41 | disposition home or self-care (01) | LOC: LBN 14:40 | PROVIDERS: PCP Family Medicine; Visit Provider Family Medicine | DX: R33.8 Other retention of urine (principal); R82.998 Other abnormal findings in urine | CPT/HCPCS: 87077; 87086; 87186 ==

== ENCOUNTER 2022-05-11 02:05 | Outpatient (RCR) | payer MEDICARE, SELFPAY ==
[2022-04-14 00:11] VITALS: BP 130/55; PULSE 78; RESP 16; TEMP 36.3
[2022-05-11] VITALS (7 sets, daily range): BP systolic 110–123; BP diastolic 63–75; PULSE 66–72; RESP 17; TEMP 36.1–37.1; O2SAT 97–100
[2022-05-11] MEDS: Normal Saline Flush 10 ML SYR IVP (11:19)
== END 2022-05-11 23:59 | disposition home or self-care (01) ==
LOC: INF 02:05
PROVIDERS: PCP Family Medicine; Visit Provider Nurse Practitioner Acute Care
DX: L40.52 Psoriatic arthritis mutilans (principal)
CPT/HCPCS: 96365; 96366; J1745

== ENCOUNTER 2022-07-06 02:20 | Outpatient (RCR) | payer MEDICARE, SELFPAY ==
[2022-05-12 00:06] VITALS: BP 121/70; PULSE 70; RESP 17; TEMP 36.1
[2022-07-06 11:00] VITALS: BP 93/62; PULSE 71; RESP 17; TEMP 36.5; O2SAT 97
[2022-07-06] MEDS: Normal Saline Flush 10 ML SYR IVP (12:22)
[2022-07-06 12:40] VITALS: BP 97/60; PULSE 70; TEMP 36.6; O2SAT 97
[2022-07-06 12:55] VITALS: BP 92/58; PULSE 69; TEMP 36.8; O2SAT 96
[2022-07-06 13:15] VITALS: BP 94/58; PULSE 63; TEMP 36.7; O2SAT 98
[2022-07-06 13:35] VITALS: BP 98/61; PULSE 60; TEMP 36.1; O2SAT 97
[2022-07-06 14:25] VITALS: BP 105/68; PULSE 65; RESP 17; TEMP 36.9; O2SAT 96
== END 2022-07-11 23:59 | disposition home or self-care (01) ==
LOC: INF 02:20
PROVIDERS: PCP Family Medicine; Visit Provider Nurse Practitioner Acute Care
DX: L40.52 Psoriatic arthritis mutilans (principal)
CPT/HCPCS: 96365; 96366; J1745

== ENCOUNTER 2022-07-13 04:19 | Outpatient (CLI) | payer MEDICARE, SELFPAY ==
--- NOTE | 2022-07-13 07:15 | DI.MAMMO_ITS ---
Exam(s) MAMMO SCREENING EXAM: MAMMO SCREENING CLINICAL HISTORY: screening,Z12.39. TECHNIQUE: Bilateral full field digital CC and MLO mammographic images were obtained with 3D tomosyn thesis and utilizing computer aided detection (CAD). COMPARISON: Prior mammograms were reviewed. FINDINGS: There has been no significant change in the appearance and distribution of the fibroglandular tissue. Asymmetric density in the right breast on the MLO view is unchanged at least 2013 and therefore benig n. There are no new spiculated masses nor malignant appearing microcalcification groups. There is no significant architectural distortion nor skin thickening-retraction. IMPRESSION: No radiographic evidence of malignancy. BI-RADS Category 1 - Negative Breast Density - Category B - Scattered areas of fibroglandular density Breast density Category C or D implies that the patient has dense breast tissue. Dense breast tissue can make it harder to find cancer on a mammogram. Dense breast tissue is also associated with an incr eased risk of breast cancer. This information about the result of the mammogram report was provided to the patient to raise their awareness. Use this report when you speak with the patient about their risks for breast cancer, which includes their family history. At that time, you may recommend additional screening tests (Ultrasoun d or MRI) as these tests may add significant information. A negative radiographic report should not delay biopsy if a dominant or clinically suspicious mass is present. Up to ten percent of cancers are not identified on mammography. A negative report may reinforce clinical impression. Adenosis and dense breasts may obscure an underlying neoplasm. False positive reports average 6 to 10%. Patient will receive a letter notifying them of these results.
== END 2022-07-13 04:39 ==
LOC: DI 04:19
PROVIDERS: PCP Family Medicine; Visit Provider Family Medicine
DX: Z12.31 Encounter for screening mammogram for malignant neoplasm of breast (principal)
CPT/HCPCS: 77063; 77067

== ENCOUNTER 2022-08-31 02:56 | Outpatient (RCR) | payer MEDICARE, SELFPAY ==
[2022-07-12 00:01] VITALS: BP 105/68; PULSE 65; RESP 17; TEMP 36.9
[2022-08-31] VITALS (7 sets, daily range): BP systolic 98–124; BP diastolic 59–74; PULSE 65–77; RESP 17; TEMP 36.7–37; O2SAT 96–98
[2022-08-31] MEDS: Normal Saline Flush 10 ML SYR IVP (11:22)
== END 2022-09-10 23:59 | disposition home or self-care (01) ==
LOC: INF 02:56
PROVIDERS: PCP Family Medicine; Visit Provider Nurse Practitioner Acute Care
DX: L40.52 Psoriatic arthritis mutilans (principal)
CPT/HCPCS: 96365; 96366; J1745

== ENCOUNTER 2022-10-04 22:48 | Outpatient (CLI) | payer MEDICARE, SELFPAY ==
--- NOTE | 2022-10-04 | DI.RAD_ITS ---
Exam(s) XR CHEST 2V PA LATERAL EXAM: XR CHEST 2V PA LATERAL CLINICAL HISTORY: COUGH--R05.8 TECHNIQUE: 2D digital imaging was performed of the chest. Two images were obtained. PA and lateral views were obtained. COMPARISON: CR XR CHEST 2V PA LATERAL from 08/21/2021 FINDINGS: MEDIASTINUM: Normal. HEART: Normal. PULMONARY VASCULATURE: Normal. LUNGS: Clear. PLEURAL SPACE: No pleural effusion or pneumothorax. BONE:Within normal limits for the patient's age. OTHER FINDINGS:Normal. IMPRESSION: No acute pulmonary findings. DATA REPOSITORY: RADIATION DOSE DELIVERED:
== END 2022-10-04 23:08 ==
LOC: DI 22:49
PROVIDERS: PCP Family Medicine; Visit Provider Nurse Practitioner Family
DX: R05.8 Other specified cough (principal)
CPT/HCPCS: 71046

== ENCOUNTER 2022-10-13 14:32 | Outpatient (CLI) | payer MEDICARE, SELFPAY ==
[2022-10-13 13:52] LABS: Abs Immature Grans 0.04 10^3/uL (0.0-0.06); Absolute Basophil Count 0.03 10^3/uL (0.0-0.2); Absolute Eosinophil Count 0.19 10^3/uL (0.0-0.7); Absolute Neutrophil Count 5.36 10^3/uL (1.2-6.7); Basophils % 0.3; HCT 37.3 % (36.0-46.0); HGB 12.3 g/dL (11.2-15.7); Immature Grans % 0.4; Lymphocytes % 33.3; MCV 94 fL (80-95); MPV 8.7 fL (8.0-11.0); Monocytes % 6.4; Neutrophils % 57.6; Platelet Count 289 10^3/uL (130-400); RBC 3.97 10^6/uL (3.93-5.22); RDW 12.4 % (11.7-14.6); RDW-SD 42.5 fL; WBC 9.32 10^3/uL (4.4-10.8)
[2022-10-13 13:54] LABS: ESR 18 mm/hr (0-30)
[2022-10-13 14:57] LABS: ALT 28 U/L (14-59); AST 21 U/L (15-37); Albumin 3.2 g/dL (3.4-5.0); Alkaline Phosphatase 71 U/L (46-116); Anion Gap 6.5 mmol/L (3-11); BUN 13 mg/dL (7-18); Bilirubin, Total 0.3 mg/dL (0.2-1.0); CO2 29.5 mmol/L (21.0-32.0); CREATININE 0.9 mg/dL (0.55-1.02); Chloride 103 mmol/L (98-107); Estimated GFR 68.35 (mL/min/1.73m2); Glucose 80 mg/dL (74-106); Potassium 3.9 mmol/L (3.5-5.1); Sodium 139 mmol/L (136-145); Total Protein 7.1 g/dL (6.4-8.2)
== END 2022-10-13 14:33 | disposition home or self-care (01) ==
LOC: LBO 14:32
PROVIDERS: PCP Family Medicine; Visit Provider Nurse Practitioner
DX: L40.50 Arthropathic psoriasis, unspecified (principal); Z79.899 Other long term (current) drug therapy
CPT/HCPCS: 36415; 80053; 85652; 85025; 86140

== ENCOUNTER 2022-10-26 02:13 | Outpatient (RCR) | payer MEDICARE, SELFPAY ==
[2022-09-11 00:11] VITALS: BP 104/63; PULSE 77; RESP 17; TEMP 36.8
[2022-10-26] MEDS: Normal Saline Flush 10 ML SYR IVP (11:10)
[2022-10-26] MEDS: diphenhydrAMINE 25 MG CAP PO (11:10)
[2022-10-26] MEDS: Acetaminophen 325 MG TAB 650 MG PO (11:10)
[2022-10-26 11:36] VITALS: BP 111/70; PULSE 64; RESP 18; TEMP 37; O2SAT 98
[2022-10-26 12:00] VITALS: BP 120/72; PULSE 62; RESP 17; TEMP 36.3; O2SAT 98
[2022-10-26 12:56] VITALS: BP 118/77; PULSE 62; RESP 18; TEMP 36; O2SAT 98
[2022-10-26 13:30] VITALS: BP 114/72; PULSE 64; RESP 18; TEMP 36; O2SAT 99
[2022-10-26 14:00] VITALS: BP 112/66; PULSE 69; RESP 18; TEMP 36; O2SAT 96
== END 2022-11-11 23:59 | disposition home or self-care (01) ==
LOC: INF 02:13
PROVIDERS: PCP Family Medicine; Visit Provider Nurse Practitioner Acute Care
DX: L40.52 Psoriatic arthritis mutilans (principal)
CPT/HCPCS: 96365; 96366; J1745

== ENCOUNTER 2022-12-21 01:27 | Outpatient (RCR) | payer MEDICARE, SELFPAY ==
[2022-11-12 00:01] VITALS: BP 112/66; PULSE 69; RESP 18; TEMP 36
[2022-12-21] VITALS (7 sets, daily range): BP systolic 112–135; BP diastolic 67–80; PULSE 64–68; RESP 16–17; TEMP 36.4–37.6; O2SAT 97–98
[2022-12-21] MEDS: diphenhydrAMINE 25 MG CAP PO (11:00)
[2022-12-21] MEDS: Acetaminophen 325 MG TAB 650 MG PO (11:00)
[2022-12-21] MEDS: Normal Saline Flush 10 ML SYR IVP (11:01)
== END 2023-01-11 23:59 | disposition home or self-care (01) ==
LOC: INF 01:27
PROVIDERS: PCP Family Medicine; Visit Provider Nurse Practitioner Acute Care
DX: L40.50 Arthropathic psoriasis, unspecified (principal)
CPT/HCPCS: 96365; 96366; J1745

== ENCOUNTER 2023-02-15 01:57 | Outpatient (RCR) | payer MEDICARE, SELFPAY ==
[2023-01-12 00:02] VITALS: BP 112/66; PULSE 69; RESP 18; TEMP 36
[2023-02-15 11:33] VITALS: BP 128/78; PULSE 64; TEMP 36.4; O2SAT 99
[2023-02-15 12:15] VITALS: BP 123/77; PULSE 63; RESP 18; TEMP 37.4; O2SAT 99
[2023-02-15 12:35] VITALS: BP 118/72; PULSE 60; TEMP 36.9; O2SAT 98
[2023-02-15 12:51] VITALS: BP 115/73; PULSE 70; TEMP 36.6; O2SAT 98
[2023-02-15 13:07] VITALS: BP 112/69; PULSE 68; TEMP 36.3; O2SAT 97
[2023-02-15 13:35] VITALS: BP 113/70; PULSE 68; TEMP 37; O2SAT 97
[2023-02-15] MEDS: Normal Saline Flush 10 ML SYR IVP (14:31)
== END 2023-03-13 23:59 | disposition home or self-care (01) ==
LOC: INF 01:57
PROVIDERS: PCP Family Medicine; Visit Provider Nurse Practitioner Acute Care
DX: L40.50 Arthropathic psoriasis, unspecified (principal); Z79.899 Other long term (current) drug therapy
CPT/HCPCS: 96365; 96366; J1745

== ENCOUNTER 2023-04-12 01:54 | Outpatient (RCR) | payer MEDICARE, SELFPAY ==
[2023-03-14 00:01] VITALS: BP 112/66; PULSE 69; RESP 18; TEMP 36
[2023-04-12] VITALS (7 sets, daily range): BP systolic 109–122; BP diastolic 67–79; PULSE 62–70; RESP 16–17; TEMP 36.3–36.6; O2SAT 97–99
[2023-04-12] MEDS: Normal Saline Flush 10 ML SYR IVP (11:28)
== END 2023-04-13 23:59 | disposition home or self-care (01) ==
LOC: INF 01:54
PROVIDERS: PCP Family Medicine; Visit Provider Nurse Practitioner Acute Care
DX: L40.50 Arthropathic psoriasis, unspecified (principal)
CPT/HCPCS: 96365; 96366; J1745

== ENCOUNTER 2023-04-29 02:54 | Outpatient (CLI) | payer MEDICARE, SELFPAY ==
[2023-04-29 12:33] LABS: Abs Immature Grans 0.01 10^3/uL (0.0-0.06); Absolute Basophil Count 0.03 10^3/uL (0.0-0.2); Absolute Eosinophil Count 0.05 10^3/uL (0.0-0.7); Absolute Lymphocyte Count 1.68 10^3/uL (1.2-3.4); Absolute Monocyte Count 0.48 10^3/uL (0.1-0.8); Basophils % 0.7; Eosinophils % 1.1; HCT 38.6 % (36.0-46.0); HGB 12.6 g/dL (11.2-15.7); Immature Grans % 0.2; Lymphocytes % 38.6; MCHC 32.6 % (32.0-36.0); MCV 95 fL (80-95); MPV 9.3 fL (8.0-11.0); Neutrophils % 48.4; Platelet Count 205 10^3/uL (130-400); RBC 4.07 10^6/uL (3.93-5.22); RDW 12.7 % (11.7-14.6); RDW-SD 44.1 fL; WBC 4.35 10^3/uL (4.4-10.8)
[2023-04-29 12:40] LABS: Absolute Neutrophil Count 2.11 10^3/uL (1.2-6.7)
[2023-04-29 12:51] LABS: ESR 12 mm/hr (0-30)
[2023-04-29 12:56] LABS: ALT 23 U/L (14-59); AST 26 U/L (15-37); Albumin 3.6 g/dL (3.4-5.0); Alkaline Phosphatase 91 U/L (46-116); Anion Gap 7.4 mmol/L (3-11); BUN 19 mg/dL (7-18); Bilirubin, Total 0.3 mg/dL (0.2-1.0); CO2 29.6 mmol/L (21.0-32.0); CREATININE 0.9 mg/dL (0.55-1.02); Calcium 9.2 mg/dL (8.5-10.1); Chloride 103 mmol/L (98-107); Estimated GFR 67.92 (mL/min/1.73m2); Glucose 101 mg/dL (74-106); Potassium 4.5 mmol/L (3.5-5.1); Sodium 140 mmol/L (136-145); Total Protein 7.6 g/dL (6.4-8.2)
[2023-04-29 12:58] LABS: C-Reactive Protein < 0.50 mg/dL (<or=0.5)
== END 2023-04-29 02:55 | disposition home or self-care (01) ==
LOC: LBO 02:54
PROVIDERS: PCP Family Medicine; Visit Provider Nurse Practitioner
DX: Z79.899 Other long term (current) drug therapy (principal)
CPT/HCPCS: 36415; 80053; 85652; 85025; 86140

== ENCOUNTER 2023-06-07 04:28 | Outpatient (RCR) | payer MEDICARE, SELFPAY ==
[2023-04-14 00:16] VITALS: BP 112/66; PULSE 69; RESP 18; TEMP 36
[2023-06-07] VITALS (7 sets, daily range): BP systolic 102–124; BP diastolic 60–77; PULSE 58–75; RESP 16; TEMP 36.1–36.7; O2SAT 96–100
[2023-06-07] MEDS: Normal Saline Flush 10 ML SYR IVP (11:23)
== END 2023-06-12 23:59 | disposition home or self-care (01) ==
LOC: INF 04:28
PROVIDERS: PCP Family Medicine; Visit Provider Nurse Practitioner Acute Care
DX: L40.50 Arthropathic psoriasis, unspecified (principal); Z79.899 Other long term (current) drug therapy
CPT/HCPCS: 96365; 96366; J1745

== ENCOUNTER 2023-08-02 04:57 | Outpatient (RCR) | payer MEDICARE, SELFPAY ==
[2023-06-13 00:01] VITALS: BP 112/66; PULSE 69; RESP 18; TEMP 36
[2023-08-02] VITALS (7 sets, daily range): BP systolic 121–137; BP diastolic 60–75; PULSE 60–69; RESP 16; TEMP 36.1–36.5; O2SAT 97–98
[2023-08-02] MEDS: Normal Saline Flush 10 ML SYR IVP (11:11)
== END 2023-08-12 23:59 | disposition home or self-care (01) ==
LOC: INF 04:57
PROVIDERS: PCP Family Medicine; Visit Provider Nurse Practitioner Acute Care
DX: L40.50 Arthropathic psoriasis, unspecified (principal)
CPT/HCPCS: 96365; 96366; J1745

== ENCOUNTER 2023-09-27 01:56 | Outpatient (RCR) | payer MEDICARE, SELFPAY ==
[2023-08-13 00:02] VITALS: BP 112/66; PULSE 69; RESP 18; TEMP 36
[2023-09-27] VITALS (7 sets, daily range): BP systolic 106–133; BP diastolic 60–77; PULSE 60–66; RESP 16; TEMP 36–36.7; O2SAT 96–99
[2023-09-27] MEDS: diphenhydrAMINE 25 MG CAP PO (11:02)
[2023-09-27] MEDS: Acetaminophen 325 MG TAB 650 MG PO (11:02)
[2023-09-27] MEDS: Normal Saline Flush 10 ML SYR IVP (11:03)
== END 2023-10-12 23:59 | disposition home or self-care (01) ==
LOC: INF 01:56
PROVIDERS: PCP Family Medicine; Visit Provider Nurse Practitioner Acute Care
DX: L40.50 Arthropathic psoriasis, unspecified (principal); Z79.899 Other long term (current) drug therapy
CPT/HCPCS: 96365; 96366; J1745

== ENCOUNTER 2023-10-27 13:08 | Outpatient (CLI) | payer MEDICARE, SELFPAY ==
[2023-10-27 13:28] LABS: Abs Immature Grans 0.01 10^3/uL (0.0-0.06); Absolute Basophil Count 0.04 10^3/uL (0.0-0.2); Absolute Eosinophil Count 0.11 10^3/uL (0.0-0.7); Absolute Lymphocyte Count 2.78 10^3/uL (1.2-3.4); Absolute Monocyte Count 0.42 10^3/uL (0.1-0.8); Absolute Neutrophil Count 2.63 10^3/uL (1.2-6.7); Basophils % 0.7 %; Eosinophils % 1.8 %; HCT 39.8 % (36.0-46.0); Immature Grans % 0.2 %; Lymphocytes % 46.4 %; MCH 31.3 pg (27.0-33.0); MCHC 32.7 % (32.0-36.0); MCV 96 fL (80-95); MPV 9.3 fL (8.0-11.0); Neutrophils % 43.9 %; Platelet Count 230 10^3/uL (130-400); RBC 4.16 10^6/uL (3.93-5.22); RDW 12.3 % (11.7-14.6); RDW-SD 43.6 fL; WBC 5.99 10^3/uL (4.4-10.8)
[2023-10-27 13:35] LABS: ESR 22 mm/hr (0-30)
[2023-10-27 15:37] LABS: ALT 24 U/L (14-59); AST 28 U/L (15-37); Albumin 3.6 g/dL (3.4-5.0); Alkaline Phosphatase 96 U/L (46-116); BUN 27 mg/dL (7-18); CREATININE 0.9 mg/dL (0.55-1.02); Calcium 9.4 mg/dL (8.5-10.1); Chloride 102 mmol/L (98-107); Estimated GFR 67.92 (mL/min/1.73m2); Glucose 74 mg/dL (74-106); Potassium 4.1 mmol/L (3.5-5.1); Sodium 139 mmol/L (136-145); Total Protein 7.7 g/dL (6.4-8.2)
[2023-10-27 15:38] LABS: C-Reactive Protein < 0.50 mg/dL (<or=0.5)
== END 2023-10-27 13:09 | disposition home or self-care (01) ==
LOC: LBO 13:09
PROVIDERS: PCP Family Medicine; Visit Provider Nurse Practitioner
DX: Z79.899 Other long term (current) drug therapy (principal)
CPT/HCPCS: 36415; 80053; 85652; 85025; 86140

== ENCOUNTER 2023-11-22 01:40 | Outpatient (RCR) | payer MEDICARE, SELFPAY ==
[2023-10-13 00:02] VITALS: BP 112/66; PULSE 69; RESP 18; TEMP 36
[2023-11-22] MEDS: Acetaminophen 325 MG TAB 650 MG PO (11:13)
[2023-11-22] MEDS: Normal Saline Flush 10 ML SYR IVP (11:13)
[2023-11-22] MEDS: diphenhydrAMINE 25 MG CAP PO (11:13)
[2023-11-22 11:15] VITALS: BP 120/74; PULSE 74; RESP 18; TEMP 36.9; O2SAT 98
[2023-11-22 11:50] VITALS: BP 116/65; PULSE 63; RESP 18; TEMP 36.9; O2SAT 98
[2023-11-22 12:10] VITALS: BP 116/67; PULSE 71; RESP 18; TEMP 36.9; O2SAT 99
[2023-11-22 12:25] VITALS: BP 118/68; PULSE 65; RESP 18; TEMP 36.7; O2SAT 97
[2023-11-22 12:40] VITALS: BP 118/69; PULSE 65; RESP 18; TEMP 36.6; O2SAT 97
[2023-11-22 13:15] VITALS: BP 108/61; PULSE 71; RESP 18; TEMP 36.6; O2SAT 98
== END 2023-12-12 23:59 | disposition home or self-care (01) ==
LOC: INF 01:40
PROVIDERS: PCP Family Medicine; Visit Provider Nurse Practitioner Acute Care
DX: L40.50 Arthropathic psoriasis, unspecified (principal); Z79.899 Other long term (current) drug therapy
CPT/HCPCS: 96365; 96366; J1745

== ENCOUNTER 2024-01-17 01:49 | Outpatient (RCR) | payer MEDICARE, SELFPAY ==
[2023-12-13 00:02] VITALS: BP 112/66; PULSE 69; RESP 18; TEMP 36
[2024-01-17] VITALS (7 sets, daily range): BP systolic 106–118; BP diastolic 66–73; PULSE 63–74; RESP 16–18; TEMP 36.4–37.5; O2SAT 98–99
[2024-01-17] MEDS: Normal Saline Flush 10 ML SYR IVP (11:34)
== END 2024-02-11 23:59 | disposition home or self-care (01) ==
LOC: INF 01:49
PROVIDERS: PCP Family Medicine; Visit Provider Nurse Practitioner Acute Care
DX: L40.50 Arthropathic psoriasis, unspecified (principal); Z79.899 Other long term (current) drug therapy
CPT/HCPCS: 96365; 96366; J1745

== ENCOUNTER 2024-03-22 04:07 | Outpatient (RCR) | payer MEDICARE, SELFPAY ==
[2024-02-12 00:01] VITALS: BP 112/66; PULSE 69; RESP 18; TEMP 36
[2024-03-22] MEDS: Normal Saline Flush 10 ML SYR IVP (11:42)
[2024-03-22 11:45] VITALS: BP 113/71; PULSE 71; RESP 18; TEMP 36.9; O2SAT 97
[2024-03-22 12:45] VITALS: BP 100/56; PULSE 68; RESP 18; TEMP 37; O2SAT 98
[2024-03-22 13:15] VITALS: BP 105/64; PULSE 72; RESP 18; TEMP 37.1; O2SAT 98
== END 2024-04-13 23:59 | disposition home or self-care (01) ==
LOC: INF 04:07
PROVIDERS: PCP Family Medicine; Visit Provider Nurse Practitioner Acute Care
DX: L40.50 Arthropathic psoriasis, unspecified (principal)
CPT/HCPCS: 96365; 96366; J1745

== ENCOUNTER 2024-05-01 04:34 | Outpatient (CLI) | payer MEDICARE, SELFPAY ==
[2024-05-01 12:37] LABS: Abs Immature Grans 0.01 10^3/uL (0.0-0.06); Absolute Basophil Count 0.05 10^3/uL (0.0-0.2); Absolute Eosinophil Count 0.06 10^3/uL (0.0-0.7); Absolute Lymphocyte Count 2.44 10^3/uL (1.2-3.4); Absolute Monocyte Count 0.55 10^3/uL (0.1-0.8); Absolute Neutrophil Count 3.45 10^3/uL (1.2-6.7); Basophils % 0.8 %; Eosinophils % 0.9 %; Immature Grans % 0.2 %; Lymphocytes % 37.2 %; MCH 31.5 pg (27.0-33.0); MCHC 32.5 % (32.0-36.0); MCV 97 fL (80-95); MPV 9.7 fL (8.0-11.0); Monocytes % 8.4 %; Neutrophils % 52.5 %; Platelet Count 216 10^3/uL (130-400); RBC 4.13 10^6/uL (3.93-5.22); RDW 12.8 % (11.7-14.6); RDW-SD 45.8 fL; WBC 6.56 10^3/uL (4.4-10.8)
[2024-05-01 12:55] LABS: ESR 22 mm/hr (0-30)
[2024-05-01 13:34] LABS: ALT 28 U/L (14-59); AST 25 U/L (15-37); Albumin 3.5 g/dL (3.4-5.0); Alkaline Phosphatase 99 U/L (46-116); Anion Gap 5.6 mmol/L (3-11); BUN 34 mg/dL (7-18); Bilirubin, Total 0.28 mg/dL (0.2-1.0); C-Reactive Protein < 0.50 mg/dL (<or=0.5); CO2 30.4 mmol/L (21.0-32.0); CREATININE 0.9 mg/dL (0.55-1.02); Calcium 9.4 mg/dL (8.5-10.1); Chloride 106 mmol/L (98-107); Glucose 79 mg/dL (74-106); Potassium 4.6 mmol/L (3.5-5.1); Sodium 142 mmol/L (136-145); Total Protein 7.3 g/dL (6.4-8.2)
== END 2024-05-01 04:35 | disposition home or self-care (01) ==
LOC: LBO 04:34
PROVIDERS: PCP Family Medicine; Visit Provider Nurse Practitioner
DX: L40.50 Arthropathic psoriasis, unspecified (principal); Z79.899 Other long term (current) drug therapy
CPT/HCPCS: 36415; 80053; 85652; 85025; 86140

== ENCOUNTER 2024-05-17 02:32 | Outpatient (RCR) | payer MEDICARE, SELFPAY ==
[2024-05-17 11:13] VITALS: BP 127/73; PULSE 66; RESP 16; TEMP 36.7; O2SAT 98
[2024-05-17] MEDS: Normal Saline Flush 5 ML SYR IVP (12:31)
[2024-05-17 13:00] VITALS: BP 97/59; PULSE 71; RESP 18; TEMP 36.9; O2SAT 100
[2024-05-17 13:31] VITALS: BP 100/59; PULSE 73; TEMP 37; O2SAT 96
[2024-05-17 14:00] VITALS: BP 98/59; PULSE 74; RESP 18; TEMP 36.8; O2SAT 99
[2024-05-17 14:30] VITALS: BP 109/62; PULSE 80; RESP 17; TEMP 36.8; O2SAT 97
== END 2024-06-11 23:59 | disposition home or self-care (01) ==
LOC: INF 02:32
PROVIDERS: PCP Family Medicine; Visit Provider Nurse Practitioner Acute Care
DX: L40.50 Arthropathic psoriasis, unspecified (principal)
CPT/HCPCS: 96365; 96366; J1745

== ENCOUNTER 2024-07-12 03:00 | Outpatient (RCR) | payer MEDICARE, SELFPAY ==
[2024-07-12] VITALS (7 sets, daily range): BP systolic 112–131; BP diastolic 61–75; PULSE 62–71; RESP 17; TEMP 35.8–36.3; O2SAT 97–100
[2024-07-12] MEDS: Normal Saline Flush 10 ML SYR IVP (11:23)
== END 2024-08-11 23:59 | disposition home or self-care (01) ==
LOC: INF 03:00
PROVIDERS: PCP Family Medicine; Visit Provider Nurse Practitioner Acute Care
DX: L40.50 Arthropathic psoriasis, unspecified (principal)
CPT/HCPCS: 96365; 96366; J1745

== ENCOUNTER 2024-09-06 00:55 | Outpatient (RCR) | payer MEDICARE, SELFPAY ==
[2024-09-06] MEDS: Normal Saline Flush 10 ML SYR IVP (11:39)
[2024-09-06] MEDS: NORMAL SALINE IVPB (11:39)
[2024-09-06] MEDS: INFLIXIMAB IVPB (11:39)
[2024-09-06 11:42] VITALS: BP 98/63; PULSE 68; RESP 18; TEMP 36.4; O2SAT 99
[2024-09-06 12:12] VITALS: BP 130/77; PULSE 66; RESP 18; TEMP 36.4; O2SAT 99
[2024-09-06 12:42] VITALS: BP 128/67; PULSE 68; RESP 18; TEMP 36.6; O2SAT 99
== END 2024-09-10 23:59 | disposition home or self-care (01) ==
LOC: INF 00:55
PROVIDERS: PCP Family Medicine; Visit Provider Nurse Practitioner Acute Care
DX: L40.50 Arthropathic psoriasis, unspecified (principal)
CPT/HCPCS: 96365; J1745

== ENCOUNTER 2024-10-16 02:33 | Outpatient (CLI) | payer MEDICARE, SELFPAY ==
--- NOTE | 2024-10-16 07:15 | DI.MAMMO_ITS ---
Exam(s) MAMMO SCREENING EXAM: MAMMO SCREENING CLINICAL HISTORY: screening,z12.39 TECHNIQUE: Bilateral full field digital CC and MLO mammographic images were obtained with 3D tomosynthesis and utilizing computer aided detection (CAD). COMPARISON: Comparison is made with prior examinations. FINDINGS: Masses/Architectural Distortion: No suspicious masses or areas of architectural distortion are present. Microcalcifications: No suspicious pleomorphic-type are seen. Skin Thickening/Nipple Retraction: None. IMPRESSION: 1. No significant interval change with no specific features of malignancy noted. 2. Unless there is more urgent need, screening mammography is recommended, as per [employer] guidelines. BI-RADS Category 1 - Negative Breast Density - Category B - There are scattered areas of fibroglandular density. Breast density Category C or D implies that the patient has dense breast tissue. Dense breast tissue can make it harder to find cancer on a mammogram. Dense breast tissue is also associated with an increased risk of breast cancer. This information about the result of the mammogram report was provided to the patient to raise their awareness. Use this report when you speak with the patient about their risks for breast cancer, which includes their family history. At that time, you may recommend additional screening tests (Ultrasound or MRI) as these tests may add significant information. A negative radiographic report should not delay biopsy if a dominant or clinically suspicious mass is present. Up to ten percent of cancers are not identified on mammography. A negative report may reinforce clinical impression. Adenosis and dense breasts may obscure an underlying neoplasm. False positive reports average 6 to 10%. Patient will receive a letter notifying them of these results.
== END 2024-10-16 02:53 ==
LOC: DI 02:33
PROVIDERS: PCP Family Medicine; Visit Provider Family Medicine
DX: Z12.31 Encounter for screening mammogram for malignant neoplasm of breast (principal); R92.323 Mammographic fibroglandular density, bilateral breasts
CPT/HCPCS: 77063; 77067

== ENCOUNTER 2024-10-30 02:31 | Outpatient (CLI) | payer MEDICARE, SELFPAY ==
[2024-10-30 10:35] LABS: Abs Immature Grans 0.03 10^3/uL (0.0-0.06); HCT 37.3 % (36.0-46.0); HGB 12.4 g/dL (11.2-15.7); Immature Grans % 0.4 %; MCH 31.2 pg (27.0-33.0); MCHC 33.2 % (32.0-36.0); MCV 94 fL (80-95); MPV 9.4 fL (8.0-11.0); Platelet Count 204 10^3/uL (130-400); RBC 3.97 10^6/uL (3.93-5.22); RDW 12.6 % (11.7-14.6); RDW-SD 43.8 fL; WBC 7.52 10^3/uL (4.4-10.8)
[2024-10-30 10:42] LABS: ESR 51 mm/hr (0-30)
[2024-10-30 10:53] LABS: C-Reactive Protein 15.09 mg/dL (<or=0.5)
== END 2024-10-30 02:32 | disposition home or self-care (01) ==
LOC: LBO 02:31
PROVIDERS: PCP Family Medicine; Visit Provider Nurse Practitioner
DX: L40.50 Arthropathic psoriasis, unspecified (principal)
CPT/HCPCS: 36415; 85652; 85025; 86140

== ENCOUNTER 2024-11-01 00:44 | Outpatient (RCR) | payer MEDICARE, SELFPAY ==
[2024-11-01 11:26] VITALS: BP 99/56; PULSE 78; RESP 20; TEMP 36.4; O2SAT 96
[2024-11-01] MEDS: Normal Saline Flush 10 ML SYR IVP (11:31)
[2024-11-01 11:53] VITALS: BP 93/59; PULSE 69; RESP 20; TEMP 36.4; O2SAT 96
== END 2024-11-11 23:59 | disposition home or self-care (01) ==
LOC: INF 00:44
PROVIDERS: PCP Family Medicine; Visit Provider Nurse Practitioner Acute Care
DX: L40.59 Other psoriatic arthropathy (principal)
CPT/HCPCS: 96365; J1745

== ENCOUNTER 2024-11-06 15:41 | Outpatient (CLI) | payer MEDICARE, SELFPAY ==
--- NOTE | 2024-11-06 12:35 | DI.RAD_ITS ---
Exam(s) XR CHEST 2V PA LATERAL EXAM: XR CHEST 2V PA LATERAL CLINICAL HISTORY: Cough x2 weeks, on remicade J06.9 URI TECHNIQUE: 2D digital imaging was performed of the chest. Two images were obtained. PA and lateral views were obtained. COMPARISON: CR XR CHEST 2V PA LATERAL from 08/21/2021 CR XR CHEST 2V PA LATERAL from 10/04/2022 FINDINGS: MEDIASTINUM: Normal. HEART: Normal. PULMONARY VASCULATURE: Normal. LUNGS: There are no focal consolidating infiltrates. PLEURAL SPACE: No pleural effusion or pneumothorax. BONE:Within normal limits for the patient's age. OTHER FINDINGS:Normal. IMPRESSION: No acute pulmonary findings. DATA REPOSITORY: RADIATION DOSE DELIVERED:
== END 2024-11-06 16:01 ==
LOC: DI 15:42
PROVIDERS: PCP Family Medicine; Visit Provider Internal Medicine Cardiovascular Disease
DX: J06.9 Acute upper respiratory infection, unspecified (principal)
CPT/HCPCS: 71046

== ENCOUNTER 2024-12-27 00:27 | Outpatient (RCR) | payer MEDICARE, SELFPAY ==
[2024-12-27 11:04] VITALS: BP 128/72; PULSE 70; RESP 18; TEMP 36.3; O2SAT 99
[2024-12-27] MEDS: Normal Saline Flush 10 ML SYR IVP (11:21)
[2024-12-27 11:43] VITALS: BP 131/76; PULSE 61; RESP 18; TEMP 36.7; O2SAT 97
[2024-12-27 12:29] VITALS: BP 145/72; PULSE 68; RESP 18; TEMP 36.6; O2SAT 97
== END 2025-01-11 23:59 | disposition home or self-care (01) ==
LOC: INF 00:27
PROVIDERS: PCP Family Medicine; Visit Provider Nurse Practitioner Acute Care
DX: L40.50 Arthropathic psoriasis, unspecified (principal)
CPT/HCPCS: 96365; J1745

== ENCOUNTER → 2025-01-29 02:04 | Outpatient (CLI) | payer MEDICARE, SELFPAY ==
--- NOTE | 2025-01-29 06:45 | DI.US_ITS ---
Exam(s) US CAROTID EXAM: US CAROTID CLINICAL HISTORY: audible bruit,r09.89. TECHNIQUE: Ultrasound carotids performed using grayscale, color-flow, and spectral Doppler imaging. COMPARISON: No exams were available for comparison FINDINGS: RIGHT CAROTID ARTERY: Plaque: Minimal. Velocity elevation: None. LEFT CAROTID ARTERY: Plaque: Minimal. Velocity elevation: None. VERTEBRAL ARTERIES: Antegrade flow. Measurements: R Bulb: 67.3cm/s PS / 16.5cm/s ED R CCA: 97.4cm/s PS / 20.1cm/s ED R ECA: 90.3cm/s PS / 11.6cm/s ED R ICA Prox: 80.4cm/s PS / 26.9cm/s ED R ICA Mid: 83.2cm/s PS / 25.9cm/s ED R ICA Distal: 75.7cm/s PS /26.9cm/s ED R Vert: 36.5cm/s PS / 6.8cm/s ED R SVR: 0.9 R DVR: 1.3 L Bulb: 83.9cm/s PS / 19.1cm/s ED L CCA: 84.2cm/s PS / 19.3cm/s ED L ECA: 80.4cm/s PS / 10.5cm/s ED L ICA Prox: 88.9cm/s PS / 28.7cm/s ED L ICA Mid: 70.1cm/s PS / 23.1cm/s ED L ICA Distal: 81.8cm/s PS / 29cm/s ED L Vert: 43.1cm/s PS / 12.4cm/s ED L SVR: 1.1 L DVR: 1.5 IMPRESSION: Minimal plaque at the common carotid bulbs. No evidence for hemodynamically significant carotid stenosis. Criteria for Carotid Stenosis: Normal: ICA PSV <125 cm/s no plaque or intimal thickening is visible. <50% stenosis: ICA PSV <125 cm/s and plaque or intimal thickening is visible. 50-69% stenosis: ICA PSV is 125-250 cm/s and plaque is visible. >70% stenosis to near occlusion: ICA PSV >250 cm/s with visible plaque and luminal narrowing. DATA REPOSITORY:
== END ==
LOC: DI 02:05
PROVIDERS: PCP Family Medicine; Visit Provider Family Medicine
DX: R09.89 Other specified symptoms and signs involving the circulatory and respiratory systems (principal)
CPT/HCPCS: 93880

== ENCOUNTER 2025-02-14 20:14 | Emergency (ER) | payer MEDICARE, SELFPAY ==
[2025-02-14 20:09] VITALS: BP 173/80; PULSE 91; RESP 18; TEMP 36.4; O2SAT 98
[2025-02-14 20:12] VITALS: RESP 20
--- NOTE | 2025-02-14 20:22 | ED.GENADUL_ITS ---
Discharge Plan Disposition Patient Disposition: Home Condition: Improving Discharge Details Clinical Impression: Anxiety in acute stress reaction Primary Care Provider: Montez Houston ED Provider: Michael Puga Meds and New Rx's Prescriptions: Continued cholecalciferol (vitamin D3) 25 mcg (1,000 unit) capsule 25 mcg PO DAILY Probiotic 3 billion cell capsule 3,000 mmu cells PO DAILY Rx Instructions: administer with a meal elderberry fruit PO DAILY multivitamin 1 EACH tablet 1 ea PO DAILY infliximab [Remicade] 100 MG recon soln 500 mg IV q 8 weeks Rx Instructions: every 8 weeks since 2004 meloxicam [Mobic] 7.5 mg tablet 7.5 mg PO DAILY PRN Patient Comments: 06/22/18 [facility] mk albuterol sulfate 90 mcg/actuation HFA aerosol inhaler 1 - 2 puff inhalation Q4H PRN (Reason: shortness of breath or wheezing) Qty: 1 3RF Rx Instructions: Dispense brand of albuterol inhaler covered by patient's insurance. Dispense with spacer. Discharge Instructions Instructions: Anxiety, Adult ED Stand Alone Forms: Portal Information Referrals: Montez Houston DO [Primary Care Provider, Medicine] - 02/19/25 Discharge Data Discharge Physician: Michael Puga HPI General Date/Time Provider Initiated Documentation: 02/14/25 20:21 . HPI Narrative: Patient presents emergency department complaining of having severe anxiety after she ran out of water the day of and since then she has not been able to sleep despite the fact that the resort to water she lives alone for she is a Related Data Home Medications ?Medication ?Instructions ?Recorded ?Confirmed infliximab 100 mg intravenous 500 mg IV q 8 weeks 07/1202/14/25 solution (Remicade) multivitamin 1 ea PO DAILY 07/25/1202/14 meloxicam 7.5 mg tablet (Mobic) 7.5 mg PO DAILY PRN 02/14/25 cholecalciferol (vitamin D3) 25 25 mcg PO DAILY 02/14/25 mcg (1,000 unit) capsule elderberry fruit PO DAILY 10/06/22 01/10/25 lactobacillus combination no.4 3 3,000 mmu cells PO DA ZAKIA 07/26/23 12/04/25 billion cell capsule (Probiotic) albuterol sulfate 90 mcg/actuation 1 - 2 puff inhalati on Q4H PRN 01/17/25 02/14/25 aerosol inhaler shortness of breath or wheez ing #1 unit Previous Rx's ?Medication ?Instructions ?Recorded albuterol sulfate 90 mcg/actuation 1 - 2 puff inhalati on Q4H PRN 01/17/25 aerosol inhaler shortness of breath or wheez ing #1 unit Allergies Allergy/AdvReac Type Severity Reaction Status Date / Time No Known Allergies Allergy Verified 02/14/25 20:15 General Stated Complaint: Anxiety CLAUDINE: 3 Review of Systems Narrative: Review of Systems: Constitutional: No fevers, chills, sweats Eye: No recent visual problems ENT: No ear pain, nasal congestion, sore throat Respiratory: No shortness of breath, cough Cardiovascular: No Chest pain, palpitations, syncope Gastrointestinal: No nausea, vomiting, diarrhea Genitourinary: No hematuria Manish/Lymph: Negative for bruising tendency, swollen lymph glands Endocrine: Negative for excessive thirst, excessive hunger Musculoskeletal: No back pain, neck pain, joint pain, muscle pain, decreased range of motion Integumentary: No rash, pruritus, abrasions Neurologic: Alert & oriented X 4 P Exam Narrative Exam Narrative: Exam; vitals signs as reported above normal Constitutional; In no acute distress, afebrile General: cooperative, healthy appearing, comfortable and no acute distress HEENT: Head: normal to inspection, no palpable skull fracture and normocephalic atraumatic Eyes: : appearance normal, both eyes and all related structures EOM intact bilaterally Pupils: PERRL : conjunctiva normal Direct ophthalmoscopy: normal light reflex, normal conjunctiva, normal visual acuity Ears: Normal TM, normal external canal Nose: normal no rhinorreha Neck no JVD, supple non tender Neck: normal visual inspection, full ROM and no lymphadenopathy Chest: normal inspection of the chest Respiratory : normal respiratory effort and able to speak in complete sentences no wheezing no rales Cardio Rate: regular rate, rhythm: regular rhythm normal heart sounds S1 and S2 no murmurs, gallops, or rubs GI : normal to inspection, normal bowel sounds, soft, non tender, non distended, no organomegaly Back/Spine/ no CVA tenderness Thoracic/Lumbar Spine: no tenderness or deformities Skin no rashes or lesions Neuro: patient alert oriented x 4 and no meningeal signs, Cranial Nerves: CN's II-XI intact bilaterally, Cognition: normal cognition, Speech: speech normal, Gait: normal gait, Depp tendon reflexes normal 2+ muscle strength 5/5 bilaterally Extremities, no edema, full range of motion, normal strength : normal Rectal: Course Vital Signs Vital signs: Vital Signs Temperature 36.4 C L 02/14/25 20:09 Pulse 91 H 02/14/25 20:09 Respiratory Rate 18 02/14/25 20:09 Blood Pressure 173/80 H 02/14/25 20:09 Pulse Oximetry 98 02/14/25 20:09 Temperature 36.4 C L 02/14/25 20:09 Pulse 91 H 02/14/25 20:09 Respiratory Rate 20 02/14/25 20:12 Respiratory Effort Non-Labored 02/14/25 20:12 Blood Pressure 173/80 H 02/14/25 20:09 Pulse Oximetry 98 02/14/25 20:09 Pain Level 0 02/14/25 20:09 Medical Decision Making MDM: Summary: Patient presents to the emergency department with an anxiety attack due to the fact that after Thanksgiving her water was turned off. She did not really female who lives alone denies any suicidal homicidal ideation labs are unremarkable. She came with her knees she got 1 mg of Ativan and she has been calm and sleeping quietly she feels better. I have spoken with mental health services and [facility] [place] who will evaluate the patient at home they feel she is safely to be discharged but will be evaluated tomorrow. Her niece will come to take her back home Data Review Analysis All the data on this patient was reviewed by me including laboratory and imaging studies as well as bedside studies performed by me Independent review of Studies Imaging Lab: Labs are unremarkable Risk Stratification: Patient had anxiety attack who will be safely discharged home and will be seen by mental health at her house for therapy and anxiety treatments Differential Diagnosis: 1. Anxiety disorder 2. Panic attack 3. Hyperventilation syndrome 4. 5. Consultants: Shared disposition: Patient stands the disposition and will follow accordingly Impression: Lab Data Lab results reviewed: Yes I reviewed the patient's lab results. Quality:SDOH Health Related Social Needs: 2 Health related social needs lonely/isolated PFSH All Active Problems Anxiety in acute stress reaction (Acute) Bruit (Acute) Psoriatic arthritis (Acute) High risk medication use (Acute) Diverticula of colon (Acute) These do carry all the way over to the right colon. Severe disease Impacted cerumen (Acute 04/09/13) Murmur, cardiac (Acute) pt. 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 Breast cancer Brother Stroke Lung cancer Sister , lung ca at age 60. Lung cancer Social History Smoking/Tobacco Use Status: Former Tobacco Use Quit Date: 03/14/84 Tobacco: How many years used: 16 Quit status: quit date established (04/29/1983) Second Hand Exposure: Yes Smoking risk assessment performed?: Yes Alcohol Intake: never Drug use: Never Substance use type: does not use Adopted: No Caregiver/Support person: No Foster care: No Household members: spouse Housing: house Number of Children: 0 number of grandchildren: 0 Communication Needs: None and Corrective Lenses Education Level: high school Do you need help understanding health information?: Never current occupation: Retired Pets and animals: Yes (2) Pets and animals: cat(s) Sexually active: No Do you think of yourself as: straight/heterosexual Current gender identity: female What is your relationship status?: How often do you talk on the phone with friends or family?: three or more times per week How often do you get together with friends or relatives?: three or more times per week Do you belong to any clubs or organized social groups?: decline to answer Panel score (0-1 are the most socially isolated patients): 2 What type of physical activity do you participate in: walking and bicycling Duration: 45-60 minutes/day Frequency: daily Magaly/Sabianist: Gnosticist Special magaly needs: No Seatbelt use: always Helmet use: Yes Helmet use: never 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 Working smoke detector in home: Yes Do you feel safe at home: Yes Do you feel safe in your relationship?: Yes History History 2 0 Para Hx # Term Pregnancies Multiple births Hx # Pregnancies Ectopic pregnancies AB induced Hx Number of Living Children AB spontaneous Vital Signs & Lab Results Vital Signs Most Recent Vital Signs: Most Recent Vital Signs Temp Pulse Resp BP Pulse Ox 36.4 C L 91 H 20 173/80 H 98 02/14/25 20:09 02/14/25 20:09 02/14/25 20:12 02/14/25 20:09 02/14/25 20:09 Lab Results 02/14/25 21:23 02/14/25 22:12 Complete Blood Count: 2 WBC, (4.4-10.8) 8.58 10^3/uL Today, 21:23 RBC, (3.93-5.22) 4.28 10^6/uL Today, 21:23 Hgb, (11.2-15.7) 13.4 g/dL Today, 21:23 Hct, (36.0-46.0) 39.8 % Today, 21:23 Plt Count, (130-400) 270 10^3/uL Today, 21:23 Complete Metabolic Panel: 2 Sodium, (136-145) 142 mmol/L Today, 22:12 Potassium, (3.5-5.1) 3.7 mmol/L Today, 22:12 Chloride, (98-107) 106 mmol/L Today, 22:12 Carbon Dioxide, (20.0-31.0) 23.7 mmol/L Today, 22:12 BUN, (9-23) 29 mg/dL H Today, 22:12 Creatinine, (0.55-1.02) 1.00 mg/dL Today, 22:12 Est GFR (CKD-EPI 2020), (mL/min/1.73m2) 54.22 Today, 22:12 Calcium, (8.3-10.6) 9.3 mg/dL Today, 22:12 Albumin, (3.2-5.0) 4.0 g/dL Today, 22:12 Glucose, (74-106) 115 mg/dL H Today, 22:12 Liver Function Panel: 2 ALT, (10-49) 20 U/L Today, 22:12 AST, (<34) 32 U/L Today, 22:12 Cardiac Panel: 2 Troponin I, (<35) 3 ng/L Today
[2025-02-14] MEDS: LORazepam 1 MG TAB PO (21:27)
[2025-02-14 21:37] LABS: Abs Immature Grans 0.02 10^3/uL (0.0-0.06); HCT 39.8 % (36.0-46.0); HGB 13.4 g/dL (11.2-15.7); Immature Grans % 0.2 %; MCH 31.3 pg (27.0-33.0); MCHC 33.7 % (32.0-36.0); MCV 93 fL (80-95); MPV 9.2 fL (8.0-11.0); Platelet Count 270 10^3/uL (130-400); RBC 4.28 10^6/uL (3.93-5.22); RDW 12.4 % (11.7-14.6); RDW-SD 42.5 fL; WBC 8.58 10^3/uL (4.4-10.8)
[2025-02-14 22:36] LABS: Troponin I 3 ng/L (<35)
[2025-02-14 22:37] LABS: ALT 20 U/L (10-49); AST 32 U/L (<34); Albumin 4.0 g/dL (3.2-5.0); Alkaline Phosphatase 88 U/L (46-116); Anion Gap 12.3 mmol/L (3-11); BUN 29 mg/dL (9-23); Bilirubin, Total 0.50 mg/dL (0.2-1.2); CO2 23.7 mmol/L (20.0-31.0); Calcium 9.3 mg/dL (8.3-10.6); Chloride 106 mmol/L (98-107); Glucose 115 mg/dL (74-106); Potassium 3.7 mmol/L (3.5-5.1); Sodium 142 mmol/L (136-145); Total Protein 7.4 g/dL (5.7-8.2)
[2025-02-14 23:44] VITALS: BP 120/60; PULSE 79; RESP 18; O2SAT 96
== END 2025-02-15 00:16 | disposition home or self-care (01) ==
PROVIDERS: Emergency Provider Emergency Medicine Emergency Medical Services; PCP Family Medicine
DX: F41.9 Anxiety disorder, unspecified (principal)
CPT/HCPCS: 99283 ×2; 80053; 84484; 85025

== ENCOUNTER 2025-02-21 01:26 | Outpatient (RCR) | payer MEDICARE, SELFPAY ==
[2025-02-21 11:26] VITALS: BP 144/80; PULSE 64; RESP 18; TEMP 36.8; O2SAT 99
[2025-02-21 11:30] VITALS: BP 145/81; PULSE 61; RESP 18; TEMP 36.5; O2SAT 98
[2025-02-21] MEDS: Normal Saline Flush 10 ML SYR IVP (11:30)
== END 2025-03-13 23:59 | disposition home or self-care (01) ==
LOC: INF 01:26
PROVIDERS: PCP Family Medicine; Visit Provider Nurse Practitioner Acute Care
DX: L40.50 Arthropathic psoriasis, unspecified (principal)
CPT/HCPCS: 96365; J1745